=== PATIENT | male | born 1945 | race Caucasian/White ===

== ENCOUNTER → 2018-03-13 | Outpatient (CLI) | payer MEDICARE ==
--- NOTE | 2018-03-13 11:42 | XR ---
EXAMINATION TYPE: XR cervical spine limited DATE OF EXAM: 03/13/2018 COMPARISON: None HISTORY: Left side back pain TECHNIQUE: Three-view cervical spine FINDINGS: Minimal calcification may be within the carotid bifurcations. Facet degenerative changes ar e present. There is loss of disc height degenerative disc changes present C3-4 C5-6. Endplate spurrin g is present C6-7 and C5-6 and C3-4. Prevertebral space is normal. Posterior spinal lamellar line is intact. Odontoid appears unremarkable . IMPRESSION: 1. Degenerative disc changes and facet changes. No acute osseous abnormality radiographically appare nt.
--- NOTE | 2018-03-13 11:43 | XR ---
EXAMINATION TYPE: XR lumbar spine 2 or 3V DATE OF EXAM: 03/13/2018 COMPARISON: None HISTORY: Left side back pain TECHNIQUE: Three-view lumbar spine FINDINGS: There 5 lumbar-type vertebral bodies. The pedicles are intact. Disc space narrowing is pres ent L4-5 and posteriorly L3-4 and L5-S1. Disc space narrowing is present L2-L3. Spondylosis is presen t. Vertebral body heights are preserved. IMPRESSION: 1. Degenerative disc changes
== END | disposition home or self-care (01) ==
LOC: RADXRMAIN 10:11
PROVIDERS: ATTEND Chiropractor
DX: M47.816 Spondylosis without myelopathy or radiculopathy, lumbar region (principal); M47.812 Spondylosis without myelopathy or radiculopathy, cervical region; M99.03 Segmental and somatic dysfunction of lumbar region; M99.01 Segmental and somatic dysfunction of cervical region
CPT/HCPCS: 72040; 72100

== ENCOUNTER → 2018-06-29 | Outpatient (CLI) | payer MEDICARE ==
[2018-06-29 17:49] LABS: Albumin 4.9 g/dL (3.80-4.90); Albumin/Globulin Ratio 2.13 (1.20-2.10); Anion Gap 9.1 mmol/L (4.00-12.00); Carbon Dioxide 25.9 mmol/L (21.6-31.8); Globulin 2.3 g/dL (1.6-3.3); Potassium 4.3 mmol/L (3.5-5.5); Total Bilirubin 0.6 mg/dL (0.3-1.2); Total Protein 7.2 g/dL (6.2-8.2)
== END ==
LOC: LABWHC1 10:36
PROVIDERS: ATTEND Internal Medicine Interventional Cardiology
DX: E78.2 Mixed hyperlipidemia (principal)
CPT/HCPCS: 36415; 80053; 80061

== ENCOUNTER → 2018-07-02 | Outpatient (CLI) | payer MEDICARE ==
[2018-07-02 10:50] LABS: Basophils # (A) 0.1 k/uL (0-0.2); Basophils % (A) 1 %; Eosinophils # (A) 0.2 k/uL (0-0.7); Eosinophils % (A) 3 %; HCT 48.6 % (39.0-53.0); HGB 15.3 gm/dL (13.0-17.5); Lymphocytes # (A) 2.5 k/uL (1.0-4.8); Lymphocytes % (A) 34 %; MCH 29.6 pg (25.0-35.0); MCHC 31.4 g/dL (31.0-37.0); MCV 94.1 fL (80.0-100.0); Mean Platelet Volume 6.8; Monocytes # (A) 0.4 k/uL (0-1.0); Monocytes % (A) 6 %; Neutrophils % (A) 54 %; Platelet Count 220 k/uL (150-450); RBC 5.17 m/uL (4.30-5.90); RDW 13.5 % (11.5-15.5); WBC 7.4 k/uL (3.8-10.6)
[2018-07-02 16:11] LABS: Vitamin D 25 Hydroxy 37.7 ng/mL (30.0-100.0)
[2018-07-02 17:24] LABS: Anion Gap 10.8 mmol/L (4.00-12.00); Calcium 10.1 mg/dL (8.7-10.3); Carbon Dioxide 27.2 mmol/L (21.6-31.8); Magnesium 2.1 mg/dL (1.5-2.4); Phosphorus 3.1 mg/dL (2.4-5.1); Uric Acid 6.5 mg/dL (3.7-8.7)
[2018-07-02 17:44] LABS: Hemoglobin A1C 5.7 % (4.0-6.0)
== END | disposition home or self-care (01) ==
LOC: LABWHC1 09:54
PROVIDERS: ATTEND Family Medicine
DX: E11.22 Type 2 diabetes mellitus with diabetic chronic kidney disease (principal); N18.3 Chronic kidney disease, stage 3 (moderate); E55.9 Vitamin D deficiency, unspecified
CPT/HCPCS: 36415; 80048; 82043; 82306; 82570; 83036; 83735; 83970; 84100; 84550; 85025

== ENCOUNTER 2019-01-11 13:31 | Emergency (ER) | payer MEDICARE ==
[2019-01-11] MEDS ORDERED: SODIUM CHLORIDE 0.9% 500 ML 500 ML IV ONE (14:13)
--- NOTE | 2019-01-11 14:27 | ED ---
General Adult HPI - General Chief complaint: Altered Mental Status Stated complaint: confusion Time Seen by Provider: 01/11/19 13:35 Source: patient, family, RN notes reviewed Mode of arrival: wheelchair Limitations: altered mental status - History of Present Illness Initial comments: This is a 71-year-old female who presents emergency Department with a history of dementia patient what brings him in today because today he went to go lay down and walked into the closet shut the door behind him. states she will she went in and got him on the closet and he could not explain why he went in there. At that point time she decided to bring the emergency department states he is forgetful on occasion for the last couple of years but this was a little more altered than normal. Patient has had no fever chills. Patient has had no vomiting diarrhea. Patient denies any headache patient denies any lightheadedness patient denies any chest pain difficulty breathing or shortness of breath per patient denies any abdominal pain patient denies any nausea vomiting diarrhea. Patient denies any dysuria hematuria urinary frequency. - Related Data Home Medications Medication Instructions Recorded Confirmed Aspirin EC [Ecotrin Low Dose] 81 mg PO DAILY 01/11/19 01/11/19 Atorvastatin [Lipitor] 40 mg PO HS 01/11/19 01/11/19 Cholecalciferol (Vitamin D3) 2,000 unit PO DAILY 01/11/19 01/11/19 [Vitamin D3] Donepezil HCl [Aricept] 5 mg PO HS 01/11/19 01/11/19 FLUoxetine HCL [PROzac] 20 mg PO DAILY 01/11/19 01/11/19 Fenofibrate Nanocrystallized 145 mg PO DAILY 01/11/19 01/11/19 [Tricor] Fluticasone Nasal [place] [Flonase 1 - 2 spr EA NOSTRIL DAILY 01/11/19 01/11/19 Nasal [place]] Levothyroxine Sodium 100 mcg PO DAILY 01/11/19 01/11/19 Multivitamins, Thera [Multivitamin 1 tab PO DAILY 01/11/19 01/11/19 (formulary)] glipiZIDE [Glucotrol] 2.5 mg PO DAILY 01/11/19 01/11/19 lamoTRIgine [LaMICtal] 100 mg PO DAILY 08/12/19 08/12/19 Allergies Allergy/AdvReac Type Severity Reaction Status Date / Time Penicillins Allergy Rash/Hives Verified 01/11/19 14:44 sulfamethoxazole Allergy Rash/Hives Verified 01/11/19 14:44 [From Bactrim] trimethoprim [From Bactrim] Allergy Rash/Hives Verified 01/11/19 14:44 Review of Systems ROS Statement: Those systems with pertinent positive or pertinent negative responses have been documented in the HPI. ROS Other: All systems not noted in ROS Statement are negative. Past Medical History Past Medical History: No Reported History, Diabetes Mellitus History of Any Multi-Drug Resistant Organisms: None Reported Additional Past Surgical History / Comment(s): pacemaker Past Psychological History: No Psychological Hx Reported Smoking Status: Never smoker Past Alcohol Use History: None Reported Past Drug Use History: None Reported General Exam - General Exam Comments Initial Comments: GENERAL: Patient is well-developed and well-nourished. Patient is nontoxic and well-hy drated and is in no acute distress. ENT: Neck is soft and supple. No significant lymphadenopathy is noted. Oropharynx is clear. Moist mucous membranes. Neck has full range of motion without elici ting any pain. EYES: The sclera were anicteric and conjunctiva were pink and moist. Extraocular movements were intact and pupils were equal round and reactive to light. Eyelids were unremarkable. PULMONARY: Unlabored respirations. Good breath sounds bilaterally. No audible rales rhonchi or wheezing was noted. CARDIOVASCULAR: There is a regular rate and rhythm without any murmurs gallops or rubs. ABDOMEN: Soft and nontender with normal bowel sounds. SKIN: Skin is clear with no lesions or rashes and otherwise unremarkable. NEUROLOGIC: Patient is alert and oriented x3. Cranial nerves II through XII are grossly intact. Motor and sensory are also intact. Normal speech, volume and content. Symmetrical smile. MUSCULOSKELETAL: Normal extremities with adequate strength and full range of motion. No lower extremity swelling or edema. No calf tenderness. LYMPHATICS: No significant lymphadenopathy is noted PSYCHIATRIC: Normal psychiatric evaluation. Limitations: altered mental status Course Vital Signs 01/11/19 01/11/19 13:33 14:00 Temperature 98.5 F Pulse Rate 74 83 Respiratory 18 16 Rate Blood Pressure 124/81 137/76 O2 Sat by Pulse 98 96 Oximetry Medical Decision Making - Medical Decision Making CT shows no acute abnormality. Chest x-ray showed no acute normalities. Patient had no altered mental status while in the emergency department is comfortable taking him home. - Lab Data Result diagrams: 01/11/19 13:58 01/11/19 13:58 Lab Results 01/11/19 01/11/19 01/11/19 Range/Units 13:58 13:58 13:58 WBC 8.6 (3.8-10.6) k/uL RBC 4.56 (4.30-5.90) m/uL Hgb 14.3 (13.0-17.5) gm/dL Hct 43.1 (39.0-53.0) % MCV 94.3 (80.0-100.0) fL MCH 31.4 (25.0-35.0) pg MCHC 33.3 (31.0-37.0) g/dL RDW 15.2 (11.5-15.5) % Plt Count 196 (150-450) k/uL Neutrophils % 64 % Lymphocytes % 28 % Monocytes % 5 % Eosinophils % 2 % Basophils % 0 % Neutrophils # 5.5 (1.3-7.7) k/uL Lymphocytes # 2.4 (1.0-4.8) k/uL Monocytes # 0.4 (0-1.0) k/uL Eosinophils # 0.2 (0-0.7) k/uL Basophils # 0.0 (0-0.2) k/uL PT (9.0-12.0) sec INR (<1.2) APTT (22.0-30.0) sec Sodium 142 (137-145) mmol/L Potassium 4.1 (3.5-5.1) mmol/L Chloride 106 (98-107) mmol/L Carbon Dioxide 26 (22-30) mmol/L Anion Gap 10 mmol/L BUN 18 (9-20) mg/dL Creatinine 1.14 (0.66-1.25) mg/dL Est GFR (CKD-EPI)AfAm 73 (>60 ml/min/1.73 sqM) Est GFR (CKD-EPI)NonAf 63 (>60 ml/min/1.73 sqM) Glucose 134 H (74-99) mg/dL Calcium 9.7 (8.4-10.2) mg/dL Total Bilirubin 0.8 (0.2-1.3) mg/dL AST 24 (17-59) U/L ALT 38 (21-72) U/L Alkaline Phosphatase 102 (38-126) U/L Troponin I (0.000-0.034) ng/mL Total Protein 7.5 (6.3-8.2) g/dL Albumin 4.4 (3.5-5.0) g/dL Urine Color Yellow Urine Appearance Clear (Clear) Urine pH 8.0 (5.0-8.0) Ur Specific [place] 1.028 (1.001-1.035) Urine Protein Trace H (Negative) Urine Glucose (UA) Negative (Negative) Urine Ketones Trace H (Negative) Urine Blood Negative (Negative) Urine Nitrite Negative (Negative) Urine Bilirubin Negative (Negative) Urine Urobilinogen 2.0 (<2.0) mg/dL Ur Leukocyte Esterase Negative (Negative) Urine Opiates Screen Detected H (NotDetected) Ur Oxycodone Screen Not Detected (NotDetected) Urine Methadone Screen Not Detected (NotDetected) Ur Propoxyphene Screen Not Detected (NotDetected) Ur Barbiturates Screen Not Detected (NotDetected) U Tricyclic Antidepress Not Detected (NotDetected) Ur Phencyclidine Scrn Not Detected (NotDetected) Ur Amphetamines Screen Not Detected (NotDetected) U Methamphetamines Scrn Not Detected (NotDetected) U Benzodiazepines Scrn Detected H (NotDetected) Urine Cocaine Screen Not Detected (NotDetected) U Marijuana (THC) Screen Not Detected (NotDetected) 01/11/19 01/11/19 Range/Units 13:58 13:58 WBC (3.8-10.6) k/uL RBC (4.30-5.90) m/uL Hgb (13.0-17.5) gm/dL Hct (39.0-53.0) % MCV (80.0-100.0) fL MCH (25.0-35.0) pg MCHC (31.0-37.0) g/dL RDW (11.5-15.5) % Plt Count (150-450) k/uL Neutrophils % % Lymphocytes % % Monocytes % % Eosinophils % % Basophils % % Neutrophils # (1.3-7.7) k/uL Lymphocytes # (1.0-4.8) k/uL Monocytes # (0-1.0) k/uL Eosinophils # (0-0.7) k/uL Basophils # (0-0.2) k/uL PT 10.1 (9.0-12.0) sec INR 0.9 (<1.2) APTT 25.1 (22.0-30.0) sec Sodium (137-145) mmol/L Potassium (3.5-5.1) mmol/L Chloride (98-107) mmol/L Carbon Dioxide (22-30) mmol/L Anion Gap mmol/L BUN (9-20) mg/dL Creatinine (0.66-1.25) mg/dL Est GFR (CKD-EPI)AfAm (>60 ml/min/1.73 sqM) Est GFR (CKD-EPI)NonAf (>60 ml/min/1.73 sqM) Glucose (74-99) mg/dL Calcium (8.4-10.2) mg/dL Total Bilirubin (0.2-1.3) mg/dL AST (17-59) U/L ALT (21-72) U/L Alkaline Phosphatase (38-126) U/L Troponin I <0.012 (0.000-0.034) ng/mL Total Protein (6.3-8.2) g/dL Albumin (3.5-5.0) g/dL Urine Color Urine Appearance (Clear) Urine pH (5.0-8.0) Ur Specific [place] (1.001-1.035) Urine Protein (Negative) Urine Glucose (UA) (Negative) Urine Ketones (Negative) Urine Blood (Negative) Urine Nitrite (Negative) Urine Bilirubin (Negative) Urine Urobilinogen (<2.0) mg/dL Ur Leukocyte Esterase (Negative) Urine Opiates Screen (NotDetected) Ur Oxycodone Screen (NotDetected) Urine Methadone Screen (NotDetected) Ur Propoxyphene Screen (NotDetected) Ur Barbiturates Screen (NotDetected) U Tricyclic Antidepress (NotDetected) Ur Phencyclidine Scrn (NotDetected) Ur Amphetamines Screen (NotDetected) U Methamphetamines Scrn (NotDetected) U Benzodiazepines Scrn (NotDetected) Urine Cocaine Screen (NotDetected) U Marijuana (THC) Screen (NotDetected) Disposition Clinical Impression: Advancing dementia Disposition: HOME SELF-CARE Condition: Good Instructions (If sedation given, give patient instructions): Dementia (ED) Is patient prescribed a controlled substance at d/c from ED?: No Referrals: Helena Wisdom MD [Primary Care Provider] - 1-2 days Time of Disposition: 16:36
[2019-01-11 14:34] LABS: Appearance,Urine Clear (Clear); Basophils % (A) 0 %; Bilirubin,Urine Negative (Negative); Blood,Urine Negative (Negative); Color,Urine Yellow; Eosinophils # (A) 0.2 k/uL (0-0.7); Eosinophils % (A) 2 %; Glucose,Urine (UA) Negative (Negative); HCT 43.1 % (39.0-53.0); HGB 14.3 gm/dL (13.0-17.5); Ketones,Urine Trace (Negative); Leukocyte Esterase,Urine Negative (Negative); Lymphocytes # (A) 2.4 k/uL (1.0-4.8); Lymphocytes % (A) 28 %; MCH 31.4 pg (25.0-35.0); MCHC 33.3 g/dL (31.0-37.0); MCV 94.3 fL (80.0-100.0); Mean Platelet Volume 7.3; Monocytes # (A) 0.4 k/uL (0-1.0); Monocytes % (A) 5 %; Neutrophils # (A) 5.5 k/uL (1.3-7.7); Neutrophils % (A) 64 %; Nitrite,Urine Negative (Negative); Platelet Count 196 k/uL (150-450); Protein,Urine Trace (Negative); RBC 4.56 m/uL (4.30-5.90); RDW 15.2 % (11.5-15.5); Specific Gravity,Urine 1.028 (1.001-1.035); WBC 8.6 k/uL (3.8-10.6)
[2019-01-11 14:41] LABS: Albumin 4.4 g/dL (3.5-5.0); Calcium 9.7 mg/dL (8.4-10.2); Potassium 4.1 mmol/L (3.5-5.1); Total Bilirubin 0.8 mg/dL (0.2-1.3); Total Protein 7.5 g/dL (6.3-8.2)
[2019-01-11 14:42] LABS: INR 0.9 (<1.2); Partial Thromboplastin Time 25.1 sec (22.0-30.0); Prothrombin Time 10.1 sec (9.0-12.0)
[2019-01-11 14:44] LABS: Amphetamine Screen,Urine Not Detected (NotDetected); Barbiturate Screen,Urine Not Detected (NotDetected); Benzodiazepines Screen,Urine Detected (NotDetected); Cocaine Screen,Urine Not Detected (NotDetected); Methadone Screen, Urine Not Detected (NotDetected); Opiate Screen,Urine Detected (NotDetected); Oxycodone Screen, Urine Not Detected (NotDetected); Phencyclidine Screen,Urine Not Detected (NotDetected); Tricyclic Antidepressant,Urine Not Detected (NotDetected); Urn Cannabinoid Scrn Not Detected (NotDetected)
--- NOTE | 2019-01-11 14:59 | CT ---
EXAMINATION TYPE: CT brain wo con DATE OF EXAM: 01/11/2019 COMPARISON: None HISTORY: Confusion CT DLP: 1086.4 mGycm Automated exposure control for dose reduction was used. FINDINGS: No acute intracranial hemorrhage. Extra-axial spaces are clear. Basal cisterns are preserved. Scatter ed areas of low attenuation in periventricular and subcortical white matter. Diffuse generalized atro phy. Mild prominence of the ventricles likely on the basis of generalized atrophy. No mass effect or midline shift. Skull base is intact. Mastoid air cells and visualized paranasal sinuses are clear. Or bits are intact. IMPRESSION: NO ACUTE INTRACRANIAL HEMORRHAGE. MODERATE CHRONIC WHITE MATTER ISCHEMIA AND GENERALIZED ATROPHY. IF FOCAL NEUROLOGIC SYMPTOMS ARE PRES ENT, CONSIDER MRI OF THE BRAIN WITHOUT CONTRAST.
--- NOTE | 2019-01-11 15:05 | XR ---
EXAMINATION TYPE: XR chest 2V DATE OF EXAM: 01/11/2019 COMPARISON: NONE HISTORY: Confusion TECHNIQUE: Frontal and lateral views of the chest are obtained. FINDINGS: Left-sided cardiac pacemaker with atrioventricular leads overlying the cardiac silhouette. Left basilar scattered opacities. Cardiac silhouette and pulmonary vasculature are within normal li mits. No pleural effusion or pneumothorax. Osseous structures are grossly intact. Degenerative change s of the bilateral shoulders. IMPRESSION: A few scattered opacities at the left lung base may be related to atelectasis or early p neumonia.
[2019-01-11 16:40] VITALS: BP 127/73; PULSE 70; RESP 18; TEMP 97.9
== END 2019-01-11 17:00 | disposition home or self-care (01) ==
LOC: EC 13:31
DX: F03.90 Unspecified dementia, unspecified severity, without behavioral disturbance, psychotic disturbance, mood disturbance, and anxiety (principal); Z79.82 Long term (current) use of aspirin; Z79.899 Other long term (current) drug therapy; Z79.84 Long term (current) use of oral hypoglycemic drugs; Z79.51 Long term (current) use of inhaled steroids; Z79.890 Hormone replacement therapy; Z88.0 Allergy status to penicillin; Z88.1 Allergy status to other antibiotic agents; Z88.2 Allergy status to sulfonamides; Z95.0 Presence of cardiac pacemaker
CPT/HCPCS: 36415; 70450; 71046; 80053; 80306; 81003; 84484; 85025; 85610; 85730; 96360; 96361; 99285

== ENCOUNTER → 2019-03-04 | Outpatient (CLI) | payer MEDICARE ==
[2019-03-05 02:11] LABS: African American GFR (CKD) 67.7 (60.0-200.0); Albumin 4.7 g/dL (3.80-4.90); Albumin/Globulin Ratio 2.24 (1.60-3.17); Anion Gap 15.7 mmol/L (4.00-12.00); BUN/Creat Ratio 10.83 Ratio (12.00-20.00); Calcium 9.4 mg/dL (8.7-10.3); Carbon Dioxide 22.3 mmol/L (21.6-31.8); Chol/HDL Ratio 4.44; Globulin 2.1 g/dL (1.6-3.3); Potassium 4.1 mmol/L (3.5-5.5); Total Bilirubin 0.5 mg/dL (0.2-1.2); Total Protein 6.8 g/dL (6.2-8.2)
== END | disposition home or self-care (01) ==
LOC: LABWHC1 11:45
PROVIDERS: ATTEND Internal Medicine Interventional Cardiology
DX: E78.2 Mixed hyperlipidemia (principal)
CPT/HCPCS: 36415; 80053; 80061

== ENCOUNTER → 2019-04-09 | Outpatient (CLI) | payer MEDICARE ==
[2019-04-09 16:17] LABS: African American GFR (CKD) 67.7 (60.0-200.0); Anion Gap 7.6 mmol/L (4.00-12.00); BUN/Creat Ratio 9.17 Ratio (12.00-20.00); Calcium 9.4 mg/dL (8.7-10.3); Carbon Dioxide 28.4 mmol/L (21.6-31.8); Potassium 4.6 mmol/L (3.5-5.5)
[2019-04-09 16:47] LABS: Hemoglobin A1C 6.7 % (4.0-6.0)
== END | disposition home or self-care (01) ==
LOC: LABWHC1 10:52
PROVIDERS: ATTEND Family Medicine
DX: E11.9 Type 2 diabetes mellitus without complications (principal)
CPT/HCPCS: 36415; 80048; 82043; 82570; 83036

== ENCOUNTER 2019-06-09 15:53 | Emergency (ER) | payer MEDICARE ==
[2019-06-09] MEDS ORDERED: SODIUM CHLORIDE 0.9% 1,000 ML IV STA (16:50)
[2019-06-09 17:03] LABS: Basophils # (A) 0.2 k/uL (0-0.2); Basophils % (A) 3 %; Eosinophils # (A) 0.1 k/uL (0-0.7); Eosinophils % (A) 2 %; HCT 40.8 % (39.0-53.0); HGB 13.8 gm/dL (13.0-17.5); Lymphocytes # (A) 2.5 k/uL (1.0-4.8); Lymphocytes % (A) 38 %; MCH 30.8 pg (25.0-35.0); MCHC 33.8 g/dL (31.0-37.0); MCV 91.1 fL (80.0-100.0); Mean Platelet Volume 7.5; Monocytes # (A) 0.4 k/uL (0-1.0); Monocytes % (A) 7 %; Neutrophils # (A) 3.2 k/uL (1.3-7.7); Neutrophils % (A) 48 %; Platelet Count 181 k/uL (150-450); RBC 4.48 m/uL (4.30-5.90); RDW 12.8 % (11.5-15.5); WBC 6.6 k/uL (3.8-10.6)
--- NOTE | 2019-06-09 17:09 | ED ---
Dizziness HPI - General Chief Complaint: Dizziness Stated Complaint: Syncope Time Seen by Provider: 06/09/19 16:19 Source: patient, family, RN notes reviewed, old records reviewed Mode of arrival: wheelchair Limitations: no limitations - History of Present Illness Initial Comments: This is a 74-year-old male date ER for evaluation patient has near syncopal event today. He did lose his balance and hit his head with no loss of consciousness. Patient does have a significant heart history with pacemaker placed, patient does not think he has defibrillator. Patient does not recall being shocked with no chest pain he was lightheaded and dizzy is events all occurred after going to the [employer]. Patient was with his went to the bathroom after going to the [employer] at at the sink washing his hands began to feel lightheaded and dizzy at 25 his head. Patient currently is asymptomatic today headache chest pain shortness breath abdominal pain no recent illness nausea vomiting or diarrhea eating and drinking appropriately MD Complaint: dizziness, near syncope -: minutes(s) Timing: sudden onset Description: lightheadedness, near-syncope History of Same: Yes History of Trauma: Yes (Mild head trauma) Severity: mild Improves With: nothing Worsens With: nothing Associated Symptoms: weakness - Related Data Home Medications Medication Instructions Recorded Confirmed Aspirin EC [Ecotrin Low Dose] 81 mg PO DAILY 01/11/19 01/11/19 Atorvastatin [Lipitor] 40 mg PO HS 01/11/19 01/11/19 Cholecalciferol (Vitamin D3) 2,000 unit PO DAILY 01/11/19 01/11/19 [Vitamin D3] Donepezil HCl [Aricept] 5 mg PO HS 01/11/19 01/11/19 FLUoxetine HCL [PROzac] 20 mg PO DAILY 01/11/19 01/11/19 Fenofibrate Nanocrystallized 145 mg PO DAILY 01/11/19 01/11/19 [Tricor] Fluticasone Nasal [place] [Flonase 1 - 2 spr EA NOSTRIL DAILY 01/11/19 01/11/19 Nasal [place]] Levothyroxine Sodium 100 mcg PO DAILY 01/11/19 01/11/19 Multivitamins, Thera [Multivitamin 1 tab PO DAILY 01/11/19 01/11/19 (formulary)] glipiZIDE [Glucotrol] 2.5 mg PO DAILY 01/11/19 01/11/19 lamoTRIgine [LaMICtal] 100 mg PO DAILY 01/11/19 01/11/19 Allergies Allergy/AdvReac Type Severity Reaction Status Date / Time Penicillins Allergy Rash/Hives Verified 06/09/19 16:02 sulfamethoxazole Allergy Rash/Hives Verified 06/09/19 16:02 [From Bactrim] trimethoprim [From Bactrim] Allergy Rash/Hives Verified 06/09/19 16:02 Review of Systems ROS Statement: Those systems with pertinent positive or pertinent negative responses have been documented in the HPI. ROS Other: All systems not noted in ROS Statement are negative. Past Medical History Past Medical History: Diabetes Mellitus History of Any Multi-Drug Resistant Organisms: None Reported Additional Past Surgical History / Comment(s): pacemaker Past Psychological History: No Psychological Hx Reported Smoking Status: Never smoker Past Alcohol Use History: None Reported Past Drug Use History: None Reported General Exam Limitations: no limitations General appearance: alert, in no apparent distress Head exam: Present: atraumatic, normocephalic, normal inspection Eye exam: Present: normal appearance, PERRL, EOMI. Absent: scleral icterus, conjunctival injection, periorbital swelling ENT exam: Present: normal exam, mucous membranes moist Neck exam: Present: normal inspection. Absent: tenderness, meningismus, lymphadenopathy Respiratory exam: Present: normal lung sounds bilaterally. Absent: respiratory distress, wheezes, rales, rhonchi, stridor Cardiovascular Exam: Present: regular rate, normal rhythm, normal heart sounds. Absent: systolic murmur, diastolic murmur, rubs, gallop, clicks GI/Abdominal exam: Present: soft, normal bowel sounds. Absent: distended, tenderness, guarding, rebound, rigid Extremities exam: Present: normal inspection, full ROM, normal capillary refill. Absent: tenderness, pedal edema, joint swelling, calf tenderness Back exam: Present: normal inspection Neurological exam: Present: alert, oriented X3, CN II-XII intact Psychiatric exam: Present: normal affect, normal mood Skin exam: Present: warm, dry, intact, normal color. Absent: rash Course Vital Signs 06/09/19 06/09/19 06/09/19 15:57 18:22 19:38 Temperature 98.0 F 98.2 F Pulse Rate 77 73 70 Respiratory 18 17 18 Rate Blood Pressure 135/70 122/86 124/84 O2 Sat by Pulse 98 97 100 Oximetry - Reevaluation(s) Reevaluation #1: 06/09/19 17:40 Medical records reviewed Reevaluation #2: 06/09/19 17:40 Pacemaker is interrogated here in the ER no acute findings No significant recurrent events here in the ER patient feels at baseline EKG Findings - EKG Comments: EKG Findings:: EKG shows sinus rhythm of 70 [place] 170 QRS is 70 QTc of 406 Medical Decision Making - Medical Decision Making 74 male to the ER for evaluation patient is a regards to syncopal or near syncopal event no head injury noted. Patient is interrogated without significant findings. Patient feels fine at this time no headache chest pain shortness of breath and her abdominal pain. Patient will be discharged home - Lab Data Result diagrams: 06/09/19 16:13 06/09/19 16:13 Lab Results 06/09/19 06/09/19 06/09/19 Range/Units 16:13 16:13 16:13 WBC 6.6 (3.8-10.6) k/uL RBC 4.48 (4.30-5.90) m/uL Hgb 13.8 (13.0-17.5) gm/dL Hct 40.8 (39.0-53.0) % MCV 91.1 (80.0-100.0) fL MCH 30.8 (25.0-35.0) pg MCHC 33.8 (31.0-37.0) g/dL RDW 12.8 (11.5-15.5) % Plt Count 181 (150-450) k/uL Neutrophils % 48 % Lymphocytes % 38 % Monocytes % 7 % Eosinophils % 2 % Basophils % 3 % Neutrophils # 3.2 (1.3-7.7) k/uL Lymphocytes # 2.5 (1.0-4.8) k/uL Monocytes # 0.4 (0-1.0) k/uL Eosinophils # 0.1 (0-0.7) k/uL Basophils # 0.2 (0-0.2) k/uL PT (9.0-12.0) sec INR (<1.2) APTT (22.0-30.0) sec D-Dimer (<0.60) mg/L FEU Sodium 136 L (137-145) mmol/L Potassium 4.0 (3.5-5.1) mmol/L Chloride 104 (98-107) mmol/L Carbon Dioxide 24 (22-30) mmol/L Anion Gap 8 mmol/L BUN 17 (9-20) mg/dL Creatinine 1.05 (0.66-1.25) mg/dL Est GFR (CKD-EPI)AfAm 80 (>60 ml/min/1.73 sqM) Est GFR (CKD-EPI)NonAf 69 (>60 ml/min/1.73 sqM) Glucose 201 H (74-99) mg/dL Plasma Lactic Acid Fernando (0.7-2.0) mmol/L Calcium 9.0 (8.4-10.2) mg/dL Phosphorus 3.4 (2.5-4.5) mg/dL Magnesium 1.8 (1.6-2.3) mg/dL Total Bilirubin 0.4 (0.2-1.3) mg/dL AST 27 (17-59) U/L ALT 25 (4-49) U/L Alkaline Phosphatase 112 (38-126) U/L Creatine Kinase 51 L (55-170) U/L CK-MB (CK-2) 0.5 (0.0-2.4) ng/mL Troponin I <0.012 (0.000-0.034) ng/mL NT-Pro-B Natriuret Pep pg/mL Total Protein 6.9 (6.3-8.2) g/dL Albumin 4.0 (3.5-5.0) g/dL TSH 3.990 (0.465-4.680) mIU/L 06/09/19 06/09/19 06/09/19 Range/Units 16:13 16:13 16:13 WBC (3.8-10.6) k/uL RBC (4.30-5.90) m/uL Hgb (13.0-17.5) gm/dL Hct (39.0-53.0) % MCV (80.0-100.0) fL MCH (25.0-35.0) pg MCHC (31.0-37.0) g/dL RDW (11.5-15.5) % Plt Count (150-450) k/uL Neutrophils % % Lymphocytes % % Monocytes % % Eosinophils % % Basophils % % Neutrophils # (1.3-7.7) k/uL Lymphocytes # (1.0-4.8) k/uL Monocytes # (0-1.0) k/uL Eosinophils # (0-0.7) k/uL Basophils # (0-0.2) k/uL PT 9.9 (9.0-12.0) sec INR 0.9 (<1.2) APTT 26.4 (22.0-30.0) sec D-Dimer 0.23 (<0.60) mg/L FEU Sodium (137-145) mmol/L Potassium (3.5-5.1) mmol/L Chloride (98-107) mmol/L Carbon Dioxide (22-30) mmol/L Anion Gap mmol/L BUN (9-20) mg/dL Creatinine (0.66-1.25) mg/dL Est GFR (CKD-EPI)AfAm (>60 ml/min/1.73 sqM) Est GFR (CKD-EPI)NonAf (>60 ml/min/1.73 sqM) Glucose (74-99) mg/dL Plasma Lactic Acid Fernando 1.3 (0.7-2.0) mmol/L Calcium (8.4-10.2) mg/dL Phosphorus (2.5-4.5) mg/dL Magnesium (1.6-2.3) mg/dL Total Bilirubin (0.2-1.3) mg/dL AST (17-59) U/L ALT (4-49) U/L Alkaline Phosphatase (38-126) U/L Creatine Kinase (55-170) U/L CK-MB (CK-2) (0.0-2.4) ng/mL Troponin I (0.000-0.034) ng/mL NT-Pro-B Natriuret Pep 36 pg/mL Total Protein (6.3-8.2) g/dL Albumin (3.5-5.0) g/dL TSH (0.465-4.680) mIU/L - Radiology Data Radiology results: report reviewed (CT brain C-spine negative for acute disease), image reviewed Disposition Clinical Impression: Near syncope Disposition: HOME SELF-CARE Condition: Good Instructions (If sedation given, give patient instructions): Near Syncope (ED) Is patient prescribed a controlled substance at d/c from ED?: No Referrals: David Lowe [Primary Care Provider] - 1-2 days
[2019-06-09 17:13] LABS: Magnesium 1.8 mg/dL (1.6-2.3); Phosphorus 3.4 mg/dL (2.5-4.5); Total Bilirubin 0.4 mg/dL (0.2-1.3); Total Protein 6.9 g/dL (6.3-8.2)
[2019-06-09 17:27] LABS: D-Dimer 0.23 mg/L FEU (<0.60); INR 0.9 (<1.2); Partial Thromboplastin Time 26.4 sec (22.0-30.0); Prothrombin Time 9.9 sec (9.0-12.0)
[2019-06-09 17:38] LABS: Creatine Kinase MB 0.5 ng/mL (0.0-2.4); Troponin I <0.012 ng/mL (0.000-0.034)
--- NOTE | 2019-06-09 17:49 | CT ---
EXAMINATION TYPE: CT brain carina castro DATE OF EXAM: 06/09/2019 COMPARISON: CT brain 01/11/2019 HISTORY: Weakness. Frontal head injury. CT DLP: 1203.7 mGycm Automated exposure control for dose reduction was used. There is moderate diffuse cerebral atrophy. There is hypodensity in the white matter in both cerebral hemispheres and more noticeable around the frontal horns of the lateral ventricles. There is no mass effect nor midline shift. There is no sign of intracranial hemorrhage. Calvarium is intact. There is some straightening of the cervical vertebra. There is disc space mild narrowing at C3-4 C4-5 C5-6 with spurring of the endplates. There is mild hypertrophic facet arthropathy. The skull base is intact. IMPRESSION: Mild spondylotic changes in the mid cervical spine. No fracture. Cerebral atrophy and extensive white matter changes probably due to chronic small vessel ischemia. No acute intracranial abnormality. No change compared to last exam.
[2019-06-09 19:41] VITALS: BP 124/84; PULSE 70; RESP 18; TEMP 98.2
== END 2019-06-09 19:38 | disposition home or self-care (01) ==
LOC: EC 15:53
DX: R55 Syncope and collapse (principal); R53.1 Weakness; S09.90XA Unspecified injury of head, initial encounter; E11.9 Type 2 diabetes mellitus without complications; Z88.0 Allergy status to penicillin; Z88.2 Allergy status to sulfonamides; Z79.51 Long term (current) use of inhaled steroids; Z79.82 Long term (current) use of aspirin; Z79.84 Long term (current) use of oral hypoglycemic drugs; Z79.890 Hormone replacement therapy; Z79.899 Other long term (current) drug therapy; Z95.0 Presence of cardiac pacemaker; W22.8XXA Striking against or struck by other objects, initial encounter; Y93.89 Activity, other specified; Y92.002 Bathroom of unspecified non-institutional (private) residence as the place of occurrence of the external cause
CPT/HCPCS: 36415; 70450; 72125; 80053; 82550; 82553; 83605; 83735; 83880; 84100; 84443; 84484; 85025; 85379; 85610; 85730; 93005; 96360; 96361; 99285

== ENCOUNTER → 2019-07-09 | Outpatient (CLI) | payer MEDICARE ==
[2019-07-09 18:02] LABS: Chol/HDL Ratio 8.19
== END | disposition home or self-care (01) ==
LOC: LABWHC1 08:13
PROVIDERS: ATTEND Nurse Practitioner Adult Health
DX: E78.2 Mixed hyperlipidemia (principal)
CPT/HCPCS: 36415; 80061; 83721

== ENCOUNTER 2019-08-10 15:28 | Emergency (ER) | payer MEDICARE ==
[2019-08-10] MEDS ORDERED: KETOROLAC 30 MG/ML 1 ML VIAL IVP STA (16:21)
[2019-08-10] MEDS ORDERED: SODIUM CHLORIDE 0.9% 500 ML 500 ML IV STA (16:21)
[2019-08-10 16:53] LABS: Glucose,Whole Blood 156 mg/dL (75-99)
--- NOTE | 2019-08-10 16:55 | ED ---
Headache HPI - General Chief Complaint: Headache Stated Complaint: nause/headache Time Seen by Provider: 08/10/19 16:02 Mode of arrival: wheelchair Limitations: no limitations - History of Present Illness Initial Comments: Patient is a 74-year-old male, with history of dementia, seizures, diabetic, presenting to the emergency Department with complaints of lightheadedness and a headache x 4 days. There have been no falls or trauma. Patient states he noticed a small headache starting 4 days ago as well as lightheadedness that happens when he is up and walking around. He denies being nauseous or any vomiting prior to today. He states he had an episode of mild nausea in the ER waiting room today. He is no longer nauseous. He states his headache earlier today was 8/10 currently is about a 6/10. He states he does not normally get headaches. Patient states that if he takes this time getting up, his lightheadedness is less severe. He denies having chest pain, shortness of breath, abdominal pain. He denies urinary complaints. He denies any changes in his vision. He denies any recent changes of his medications. He states he has not eaten all day today. There are no other complaints at this time. Upon arrival to the ER, his vitals are stable. - Related Data Home Medications Medication Instructions Recorded Confirmed Aspirin EC [Ecotrin Low Dose] 81 mg PO DAILY 01/11/19 01/11/19 Atorvastatin [Lipitor] 40 mg PO HS 01/11/19 01/11/19 Cholecalciferol (Vitamin D3) 2,000 unit PO DAILY 01/11/19 01/11/19 [Vitamin D3] Donepezil HCl [Aricept] 5 mg PO HS 01/11/19 01/11/19 FLUoxetine HCL [PROzac] 20 mg PO DAILY 01/11/19 01/11/19 Fenofibrate Nanocrystallized 145 mg PO DAILY 01/11/19 01/11/19 [Tricor] Fluticasone Nasal Hodge [Flonase 1 - 2 spr EA NOSTRIL DAILY 01/11/19 01/11/19 Nasal Hodge] Levothyroxine Sodium 100 mcg PO DAILY 01/11/19 01/11/19 Multivitamins, Thera [Multivitamin 1 tab PO DAILY 01/11/19 01/11/19 (formulary)] glipiZIDE [Glucotrol] 2.5 mg PO DAILY 01/11/19 01/11/19 lamoTRIgine [LaMICtal] 100 mg PO DAILY 01/11/19 01/11/19 Allergies Allergy/AdvReac Type Severity Reaction Status Date / Time Penicillins Allergy Rash/Hives Verified 08/10/19 15:55 sulfamethoxazole Allergy Rash/Hives Verified 08/10/19 15:55 [From Bactrim] trimethoprim [From Bactrim] Allergy Rash/Hives Verified 08/10/19 15:55 Review of Systems ROS Statement: Those systems with pertinent positive or pertinent negative responses have been documented in the HPI. ROS Other: All systems not noted in ROS Statement are negative. Past Medical History Past Medical History: Coronary Artery Disease (CAD), Diabetes Mellitus History of Any Multi-Drug Resistant Organisms: None Reported Past Surgical History: Pacemaker Additional Past Surgical History / Comment(s): pacemaker , carpal tunnel Past Psychological History: No Psychological Hx Reported Smoking Status: Never smoker Past Alcohol Use History: None Reported Past Drug Use History: None Reported General Exam - General Exam Comments Initial Comments: GENERAL: Well-appearing, well-nourished and in no acute distress. HEAD: Atraumatic, normocephalic. EYES: Pupils equal round and reactive to light, extraocular movements intact, sclera anicteric, conjunctiva are normal. ENT: TMs normal, nares patent, oropharynx clear without exudates. Moist mucous membranes. NECK: Normal range of motion, supple without lymphadenopathy or JVD. LUNGS: Breath sounds clear to auscultation bilaterally and equal. No wheezes rales or rhonchi. HEART: Regular rate and rhythm without murmurs, rubs or gallops. ABDOMEN: Soft, nontender, normoactive bowel sounds. No guarding, no rebound. No masses appreciated. : Deferred EXTREMITIES: Normal range of motion, no pitting or edema. No clubbing or cyanosis. Patient has 5 out of 5 strength in his upper and lower extremities. Sensation is equal in bilateral upper and lower extremities. NEUROLOGICAL: Cranial nerves II through XII grossly intact. Normal speech, normal gait. PSYCH: Normal mood, normal affect. SKIN: Warm, Dry, normal turgor, no rashes or lesions noted. Limitations: no limitations Course Vital Signs 03/10/20 03/10/20 15:51 18:15 Temperature 97.5 F L 97.8 F Pulse Rate 66 68 Respiratory 20 18 Rate Blood Pressure 125/64 136/74 O2 Sat by Pulse 100 97 Oximetry Medical Decision Making - Medical Decision Making Patient is a 74-year-old male presenting with a headache as well as lightheadedness for the past 4 days. Vitals are stable. Exam is unremarkable. Patient does have history of dementia and seizures. No medication change. No neuro deficits today. Lab work shows no acute findings today, troponin is normal, sugar is 150. EKG shows no acute changes. Urine shows signs of dehydration, no signs of infection. CT of the brain shows chronic changes, no acute findings. Patient was given fluids as well as small dose of Toradol. He reports improvement of symptoms. He is requesting to be discharged. I discussed these findings with the patient and his . His symptoms are most likely related to dehydration as well as possible orthopedic hypotension. Patient is stable for discharge at this time. Return parameters were discussed with the patient and his and they both verbalized understanding. They will follow up with PCP. Patient and are in agreement with this plan of care. Case discussed with Dr. Clarke. - Lab Data Result diagrams: 08/10/19 16:44 08/10/19 16:44 Lab Results 08/10/19 08/10/19 08/10/19 Range/Units 16:44 16:44 16:44 WBC 8.6 (3.8-10.6) k/uL RBC 4.97 (4.30-5.90) m/uL Hgb 15.4 (13.0-17.5) gm/dL Hct 44.8 (39.0-53.0) % MCV 90.2 (80.0-100.0) fL MCH 30.9 (25.0-35.0) pg MCHC 34.3 (31.0-37.0) g/dL RDW 13.0 (11.5-15.5) % Plt Count 228 (150-450) k/uL Neutrophils % 69 % Lymphocytes % 25 % Monocytes % 4 % Eosinophils % 1 % Basophils % 0 % Neutrophils # 5.9 (1.3-7.7) k/uL Lymphocytes # 2.2 (1.0-4.8) k/uL Monocytes # 0.3 (0-1.0) k/uL Eosinophils # 0.1 (0-0.7) k/uL Basophils # 0.0 (0-0.2) k/uL PT 9.9 (9.0-12.0) sec INR 1.0 (<1.2) APTT 23.1 (22.0-30.0) sec Sodium 138 (137-145) mmol/L Potassium 4.2 (3.5-5.1) mmol/L Chloride 101 (98-107) mmol/L Carbon Dioxide 26 (22-30) mmol/L Anion Gap 11 mmol/L BUN 17 (9-20) mg/dL Creatinine 1.20 (0.66-1.25) mg/dL Est GFR (CKD-EPI)AfAm 68 (>60 ml/min/1.73 sqM) Est GFR (CKD-EPI)NonAf 59 (>60 ml/min/1.73 sqM) Glucose 148 H (74-99) mg/dL POC Glucose (mg/dL) (75-99) mg/dL POC Glu Manager Support Services ID Calcium 10.2 (8.4-10.2) mg/dL Total Bilirubin 1.0 (0.2-1.3) mg/dL AST 29 (17-59) U/L ALT 30 (4-49) U/L Alkaline Phosphatase 107 (38-126) U/L Troponin I (0.000-0.034) ng/mL Total Protein 8.3 H (6.3-8.2) g/dL Albumin 5.1 H (3.5-5.0) g/dL Urine Color Urine Appearance (Clear) Urine pH (5.0-8.0) Ur Specific [place] (1.001-1.035) Urine Protein (Negative) Urine Glucose (UA) (Negative) Urine Ketones (Negative) Urine Blood (Negative) Urine Nitrite (Negative) Urine Bilirubin (Negative) Urine Urobilinogen (<2.0) mg/dL Ur Leukocyte Esterase (Negative) Urine RBC (0-5) /hpf Urine WBC (0-5) /hpf Hyaline Casts (0-2) /lpf Urine Mucus (None) /hpf 08/10/19 08/10/19 08/10/19 Range/Units 16:44 16:47 17:05 WBC (3.8-10.6) k/uL RBC (4.30-5.90) m/uL Hgb (13.0-17.5) gm/dL Hct (39.0-53.0) % MCV (80.0-100.0) fL MCH (25.0-35.0) pg MCHC (31.0-37.0) g/dL RDW (11.5-15.5) % Plt Count (150-450) k/uL Neutrophils % % Lymphocytes % % Monocytes % % Eosinophils % % Basophils % % Neutrophils # (1.3-7.7) k/uL Lymphocytes # (1.0-4.8) k/uL Monocytes # (0-1.0) k/uL Eosinophils # (0-0.7) k/uL Basophils # (0-0.2) k/uL PT (9.0-12.0) sec INR (<1.2) APTT (22.0-30.0) sec Sodium (137-145) mmol/L Potassium (3.5-5.1) mmol/L Chloride (98-107) mmol/L Carbon Dioxide (22-30) mmol/L Anion Gap mmol/L BUN (9-20) mg/dL Creatinine (0.66-1.25) mg/dL Est GFR (CKD-EPI)AfAm (>60 ml/min/1.73 sqM) Est GFR (CKD-EPI)NonAf (>60 ml/min/1.73 sqM) Glucose (74-99) mg/dL POC Glucose (mg/dL) 156 H (75-99) mg/dL POC Glu Manager Support Services ID Josefa Ro Calcium (8.4-10.2) mg/dL Total Bilirubin (0.2-1.3) mg/dL AST (17-59) U/L ALT (4-49) U/L Alkaline Phosphatase (38-126) U/L Troponin I <0.012 (0.000-0.034) ng/mL Total Protein (6.3-8.2) g/dL Albumin (3.5-5.0) g/dL Urine Color Yellow Urine Appearance Clear (Clear) Urine pH 7.0 (5.0-8.0) Ur Specific [place] 1.034 (1.001-1.035) Urine Protein 1+ H (Negative) Urine Glucose (UA) Trace H (Negative) Urine Ketones 2+ H (Negative) Urine Blood Negative (Negative) Urine Nitrite Negative (Negative) Urine Bilirubin Negative (Negative) Urine Urobilinogen 2.0 (<2.0) mg/dL Ur Leukocyte Esterase Negative (Negative) Urine RBC 2 (0-5) /hpf Urine WBC 3 (0-5) /hpf Hyaline Casts 1 (0-2) /lpf Urine Mucus Moderate H (None) /hpf - EKG Data EKG Comments: Ventricular rate 67, PA interval 178, QTC 420. Normal sinus rhythm. Normal ECG. No acute ST segment changes. Disposition Clinical Impression: Headache, Lightheadedness, Dehydration Disposition: HOME SELF-CARE Condition: Stable Instructions (If sedation given, give patient instructions): Dehydration (ED) Additional Instructions: Please return to the Emergency Department if symptoms worsen or any other concerns. Follow-up with PCP in 1- 3 days as discussed. Increase water intake. Is patient prescribed a controlled substance at d/c from ED?: No Referrals: David Lowe [Primary Care Provider] - 1-2 days
[2019-08-10 17:06] LABS: Basophils % (A) 0 %; Eosinophils # (A) 0.1 k/uL (0-0.7); Eosinophils % (A) 1 %; HCT 44.8 % (39.0-53.0); HGB 15.4 gm/dL (13.0-17.5); Lymphocytes # (A) 2.2 k/uL (1.0-4.8); Lymphocytes % (A) 25 %; MCH 30.9 pg (25.0-35.0); MCHC 34.3 g/dL (31.0-37.0); MCV 90.2 fL (80.0-100.0); Mean Platelet Volume 7.2; Monocytes # (A) 0.3 k/uL (0-1.0); Monocytes % (A) 4 %; Neutrophils # (A) 5.9 k/uL (1.3-7.7); Neutrophils % (A) 69 %; Platelet Count 228 k/uL (150-450); RBC 4.97 m/uL (4.30-5.90); WBC 8.6 k/uL (3.8-10.6)
[2019-08-10 17:16] LABS: Albumin 5.1 g/dL (3.5-5.0); Calcium 10.2 mg/dL (8.4-10.2); Potassium 4.2 mmol/L (3.5-5.1); Total Protein 8.3 g/dL (6.3-8.2)
--- NOTE | 2019-08-10 17:24 | CT ---
EXAMINATION TYPE: CT brain wo con DATE OF EXAM: 08/10/2019 COMPARISON: 06/09/2019 HISTORY: Dizziness and headache. CT DLP: 1099.4 mGycm Automated exposure control for dose reduction was used. Multiple axial sections were obtained of the brain without contrast. There is diffuse cerebral cortical atrophy. There is moderate patchy hypodensity in the periventricul ar white matter. There is no mass effect nor midline shift. There is no sign of intracranial hemorrha ge. The calvarium is intact. IMPRESSION: Cerebral atrophy and extensive chronic small vessel ischemia. No acute intracranial abnormality. No c hange.
[2019-08-10 17:31] LABS: Partial Thromboplastin Time 23.1 sec (22.0-30.0); Prothrombin Time 9.9 sec (9.0-12.0)
[2019-08-10 17:36] LABS: Appearance,Urine Clear (Clear); Bilirubin,Urine Negative (Negative); Blood,Urine Negative (Negative); Color,Urine Yellow; Glucose,Urine (UA) Trace (Negative); Hyaline Casts,Urine 1 /lpf (0-2); Ketones,Urine 2+ (Negative); Leukocyte Esterase,Urine Negative (Negative); Mucus,Urine Moderate /hpf; Nitrite,Urine Negative (Negative); Protein,Urine 1+ (Negative); RBC,Urine 2 /hpf (0-5); Specific Gravity,Urine 1.034 (1.001-1.035); WBC,Urine 3 /hpf (0-5)
[2019-08-10 18:16] VITALS: BP 136/74; PULSE 68; RESP 18; TEMP 97.8
== END 2019-08-10 18:16 | disposition home or self-care (01) ==
LOC: EC 15:28
DX: E86.0 Dehydration (principal); R51 Headache; F03.90 Unspecified dementia, unspecified severity, without behavioral disturbance, psychotic disturbance, mood disturbance, and anxiety; I25.10 Atherosclerotic heart disease of native coronary artery without angina pectoris; R56.9 Unspecified convulsions; E11.9 Type 2 diabetes mellitus without complications; Z79.82 Long term (current) use of aspirin; Z79.84 Long term (current) use of oral hypoglycemic drugs; Z79.899 Other long term (current) drug therapy; Z88.0 Allergy status to penicillin; Z88.2 Allergy status to sulfonamides; Z88.1 Allergy status to other antibiotic agents; Z95.0 Presence of cardiac pacemaker
CPT/HCPCS: 36415; 93005; 80053; 84484; 85025; 85610; 85730; 81001; 70450; 96374; 96361; 99284; J1885

== ENCOUNTER → 2020-02-04 | Outpatient (CLI) | payer MEDICARE ==
[2020-02-04 23:56] LABS: T4, Free (Free Thyroxine) 1.4 ng/dL (0.80-1.80)
== END | disposition home or self-care (01) ==
LOC: LABWHC1 15:44
PROVIDERS: ATTEND Psychiatry & Neurology Neurology
DX: E03.9 Hypothyroidism, unspecified (principal); R41.3 Other amnesia; G40.909 Epilepsy, unspecified, not intractable, without status epilepticus
CPT/HCPCS: 36415; 82306; 82607; 84439; 84443; 85652; 86038

== ENCOUNTER → 2020-02-14 | Outpatient (CLI) | payer MEDICARE ==
--- NOTE | 2020-02-14 16:34 | CT ---
EXAMINATION TYPE: CT brain wo con DATE OF EXAM: 02/14/2020 COMPARISON: 08/10/2019 HISTORY: 1144.70 CT DLP: Cerebral infarction, unspecified mGycm Unenhanced CT of the brain was performed. The ventricles, basal cisterns and sulci overlying the cerebral convexities demonstrate moderate enla rgement. There is no evidence for intracranial hemorrhage or sulcal effacement. There is decreased attenuation about the periventricular white matter and deep white matter of both c erebral hemispheres, compatible with chronic small vessel ischemia. Differential diagnosis does inclu de demyelination. No mass effects are seen.No midline shift. Osseous calvarium is intact. If symptoms persist consider MRI. IMPRESSION: 1. Age related atrophic and chronic small vessel ischemic change without acute intracranial process s een at this time.
== END | disposition home or self-care (01) ==
LOC: RADCTMAIN 16:15
PROVIDERS: ATTEND Psychiatry & Neurology Neurology
DX: G31.1 Senile degeneration of brain, not elsewhere classified (principal); I67.82 Cerebral ischemia; I63.9 Cerebral infarction, unspecified
CPT/HCPCS: 70450

== ENCOUNTER → 2020-04-12 | Outpatient (CLI) | payer MEDICARE ==
[2020-04-12 08:40] LABS: HCT 46.1 % (39.0-53.0); HGB 15.1 gm/dL (13.0-17.5); MCH 30.3 pg (25.0-35.0); MCHC 32.7 g/dL (31.0-37.0); MCV 92.7 fL (80.0-100.0); Mean Platelet Volume 7.1; Platelet Count 211 k/uL (150-450); RBC 4.97 m/uL (4.30-5.90); RDW 13.5 % (11.5-15.5); WBC 8.2 k/uL (3.8-10.6)
[2020-04-12 08:54] LABS: Potassium 4.2 mmol/L (3.5-5.1)
== END | disposition home or self-care (01) ==
LOC: LABWHC1 07:50
PROVIDERS: ATTEND Internal Medicine Interventional Cardiology
DX: Z01.818 Encounter for other preprocedural examination (principal); R94.39 Abnormal result of other cardiovascular function study
CPT/HCPCS: 36415; 80051; 82565; 84520; 85027

== ENCOUNTER 2020-04-20 07:00 | Day surgery (SDC) | payer MEDICARE ==
[2020-04-18 11:00] VITALS: BMI 28.0
[~2020-04-20 07:00] MED LIST: ALPRAZolam 0.25 MG TAB PO PRN; ALPRAZolam 0.5 MG TAB PO PRN; ASPIRIN 325 MG TAB PO STA; NITROGLYCERIN SL TABS 0.4 MG TAB SUBLINGUAL PRN; SODIUM CHLORIDE 0.9% 1,000 ML in EMPTY BAG 1 BAG IV ONE
[2020-04-20] MEDS ORDERED: SODIUM CHLORIDE 0.9% 1,000 ML IV ONE (07:11)
[2020-04-20 07:29] LABS: Glucose,Whole Blood 122 mg/dL (75-99)
[2020-04-20] MEDS ORDERED: LIDOCAINE 1% INJ 10MG/ML (20 ML MDV) ONE (08:58)
[2020-04-20] MEDS ORDERED: fentaNYL (PF) 50 MCG/ML 2 ML AMP ONE (08:59)
[2020-04-20] MEDS ORDERED: VERAPAMIL 2.5 MG/ML 2 ML AMP ONE (08:59)
[2020-04-20] MEDS ORDERED: fentaNYL (PF) 50 MCG/ML 2 ML AMP IVP ONE (09:19)
[2020-04-20] MEDS ORDERED: LIDOCAINE 1% INJ 10MG/ML (20 ML MDV) SQ ONE (09:25)
[2020-04-20] MEDS ORDERED: VERAPAMIL SYRINGE (5 MG/10 ML) INTRAARTER ONE (09:27)
[2020-04-20] MEDS ORDERED: HEPARIN SODIUM 1,000 UN/ML (10ML VL) ONE (09:34)
[2020-04-20] MEDS ORDERED: NITROGLYCERIN 1000MCG/10ML SYRINGE INTRACORON ONE (09:36)
[2020-04-20] MEDS ORDERED: HEPARIN SODIUM 1,000 UN/ML (10ML VL) IV ONE (09:36)
[2020-04-20] MEDS ORDERED: IOPAMIDOL-370 125ML BTL INJ ONE (09:38)
[2020-04-20] MEDS ORDERED: RX INFO: IV CONTRAST WAS GIVEN 1 EACH MISC MISCELLANE PRN (09:51)
[2020-04-20] MEDS ORDERED: SODIUM CHLORIDE 0.9% 1,000 ML IV SCH (10:00)
[2020-04-20 10:01] VITALS: RESP 16
--- NOTE | 2020-04-20 12:08 | CC ---
CARDIAC CATHETERIZATION REPORT Mr. Bueno is a 75-year-old male with known history of permanent pacemaker implantation, history of diabetes, hyperlipidemia who recently underwent a myocardial perfusion imaging that revealed evidence of inferior wall ischemia. In view of that, recommendation regarding cardiac catheterization, the procedures, risks, and complication were discussed with the patient who is in full understanding and agreement. PROCEDURE: Patient was brought to labor contract analyst in a fasting state after receiving fentanyl and Benadryl and achieving moderate conscious sedated state. Using Xylocaine anesthesia such technique,. a 6-Latvian sheath was introduced in the right radial artery. Selective right and left coronary angiography performed using 5-Latvian 3.5 bend right and left Abbie catheter. multiple views of the coronary artery including hemiaxial views were obtained. Subsequently, the left Abbie was used to cross the aortic valve and left ventricular end-diastolic pressure was calculated. following that catheter and sheath were removed. Hemostasis was obtained with deployment of a TR band. There was no immediate complication. Patient is returned to his room in stable condition. Of note, the patient received 4500 units of intravenous heparin as well as intra- arterial verapamil. FLUOROSCOPY: There was calcification involving the LAD. LEFT MAIN: This is a short size vessel, bifurcating into left circumflex, left anterior descending artery. Left main coronary artery has no evidence of high-grade stenosis. LEFT ANTERIOR DESCENDING ARTERY: This is a large-sized vessel reaching toward the apex with a wraparound apex segment giving rise to 1 diagonal branch of moderate caliber. The left anterior descending artery in, has diffuse intimal disease in the proximal and mid segment with area of stenosis up to 20 30% without any critical stenosis. The caliber of the vessel is small. Next the left circumflex this is a nondominant vessel, large in caliber giving rise to 4 obtuse marginal branch the 3rd and the 4th 1 at the largest in caliber the left circumflex in the proximal segment has a 20% plaque. The rest of the vessel has no high-grade stenosis. RIGHT CORONARY ARTERY: This is a dominant vessel giving rise to a PDA distally. The right coronary artery has intimal disease in the proximal distal segment of 20% to 30% without any evidence of high-grade stenosis. LEFT VENTRICULOGRAM: Left ventriculogram was not performed. HEMODYNAMICS: There was no gradient across the aortic valve. The left ventricular end- diastolic pressure was 5-8 mmHg. CONCLUSION: 1. Mild triple-vessel coronary artery disease. 2. Right dominance. RECOMMENDATION: In view of finding anatomy, I recommend continue medical therapy with aggressive risk modifications being initiated. Those findings and recommendation were discussed with the patient and his family and they are in full understanding and agreement. Duration of sedation 8 minutes. GIO / JOSE LUIS: [id number] /
--- NOTE | 2020-04-20 12:08 | LTR ---
DATE OF SERVICE: 04/20/2020 RE: Linwood Bueno Dear Dr. Lowe; I had the pleasure to perform cardiac catheterization on Mr. Bueno at [facility] on April 20, 2020 and a full copy of the procedure note will be forwarded to you. In brief, he was found to have mild triple-vessel disease with no evidence of high- grade stenosis and based on those findings, I recommend continue medical therapy with aggressive risk modification being initiated and thank you again for allowing me to participate in this patient's care. Please feel free to call for any questions. Sincerely yours, MD KOLE De SouzaL / KAYLAN: [id number] /
[2020-04-20 18:07] VITALS: BP 136/70; PULSE 76
[2020-04-20] MEDS ORDERED: ATORVASTATIN 40 MG TAB PO SCH (21:00)
[2020-04-21] MEDS ORDERED: MULTIVITAMINS, THERA 1 EACH TAB PO SCH (09:00)
[2020-04-21] MEDS ORDERED: LEVOTHYROXINE 100 MCG TAB PO SCH (09:00)
[2020-04-21] MEDS ORDERED: NON FORMULARY DRUG (Cholecalciferol (Vitamin D3) [Vitamin D3] 2,000 UNIT Capsule) PO SCH (09:00)
[2020-04-21] MEDS ORDERED: DONEPEZIL 5 MG TAB PO SCH (09:00)
[2020-04-21] MEDS ORDERED: glipiZIDE 5 MG TAB PO SCH (09:00)
[2020-04-21] MEDS ORDERED: NON FORMULARY DRUG (Aspirin Ec 81 MG Tablet.Dr) PO SCH (09:00)
[2020-04-21] MEDS ORDERED: NON FORMULARY DRUG (Fenofibrate Nanocrystallized [Tricor] 145 MG Tablet) PO SCH (09:00)
== END 2020-04-20 15:00 | disposition home or self-care (01) ==
LOC: CATHCVL 07:00
PROVIDERS: ATTEND Internal Medicine Interventional Cardiology
DX: I25.10 Atherosclerotic heart disease of native coronary artery without angina pectoris (principal); E11.9 Type 2 diabetes mellitus without complications; E78.2 Mixed hyperlipidemia; E07.9 Disorder of thyroid, unspecified; Z95.0 Presence of cardiac pacemaker; Z79.84 Long term (current) use of oral hypoglycemic drugs; Z79.890 Hormone replacement therapy; Z79.82 Long term (current) use of aspirin; Z79.899 Other long term (current) drug therapy; Z88.0 Allergy status to penicillin; Z88.2 Allergy status to sulfonamides; Z88.8 Allergy status to other drugs, medicaments and biological substances; Z87.891 Personal history of nicotine dependence; Z82.49 Family history of ischemic heart disease and other diseases of the circulatory system
CPT/HCPCS: 93458; C1769; C1894; J2001; J3010; J1644; Q9967

== ENCOUNTER 2020-05-03 12:11 | Emergency (ER) | payer MEDICARE ==
[2020-05-03] MEDS ORDERED: ONDANSETRON 4 MG/2 ML VIAL IVP STA (12:58)
--- NOTE | 2020-05-03 13:05 | ED ---
General Adult HPI - General Chief complaint: Nausea/Vomiting/Diarrhea Stated complaint: Weakness,diarrhea Time Seen by Provider: 05/03/20 12:23 Source: patient, RN notes reviewed Mode of arrival: wheelchair Limitations: no limitations - History of Present Illness Initial comments: 75-year-old male with a past medical history of CAD, diabetes mellitus presents to the emergency room for a chief complaint of nausea vomiting diarrhea. Patient reports this has been ongoing for about 3 days. He reports he is able to keep down fluids. Patient also has slight dry cough and body aches. Patient denies fevers. He denies any abdominal pain whatsoever. Denies bloody or mucousy diarrhea. Patient did get together with his whole family less than a week ago for the Thanksgiving and is concerned he could have coronavirus. Patient has no other complaints at this time including shortness of breath, chest pain, abdominal pain, nausea or vomiting, headache, or visual changes. - Related Data Home Medications Medication Instructions Recorded Confirmed Aspirin EC [Ecotrin Low Dose] 81 mg PO DAILY 01/11/19 05/03/20 Atorvastatin [Lipitor] 40 mg PO HS 01/11/19 05/03/20 Cholecalciferol (Vitamin D3) 2,000 unit PO DAILY 01/11/19 05/03/20 [Vitamin D3] Levothyroxine Sodium 112 mcg PO DAILY 01/11/19 05/03/20 glipiZIDE [Glucotrol] 2.5 mg PO DAILY 01/11/19 05/03/20 Donepezil [Aricept] 10 mg PO DAILY 05/03/20 05/03/20 Multivit-Min/Folic/Vit K/Lycop 1 tab PO DAILY 05/03/20 05/03/20 [Men's Multivitamin Tablet] Vitamin E Acetate [Vitamin E] 200 unit PO DAILY 05/03/20 05/03/20 Allergies Allergy/AdvReac Type Severity Reaction Status Date / Time Penicillins Allergy Rash/Hives Verified 05/03/20 13:00 sulfamethoxazole Allergy Rash/Hives Verified 05/03/20 13:00 [From Bactrim] trimethoprim [From Bactrim] Allergy Rash/Hives Verified 05/03/20 13:00 rye bread AdvReac Unknown Uncoded 04/20/20 07:28 Review of Systems ROS Statement: Those systems with pertinent positive or pertinent negative responses have been documented in the HPI. ROS Other: All systems not noted in ROS Statement are negative. Past Medical History Past Medical History: Coronary Artery Disease (CAD), Diabetes Mellitus History of Any Multi-Drug Resistant Organisms: None Reported Past Surgical History: Pacemaker Additional Past Surgical History / Comment(s): pacemaker , carpal tunnel Past Psychological History: No Psychological Hx Reported Smoking Status: Never smoker Past Alcohol Use History: None Reported Past Drug Use History: None Reported General Exam Limitations: no limitations General appearance: alert, in no apparent distress Head exam: Present: atraumatic, normocephalic, normal inspection Eye exam: Present: normal appearance, PERRL, EOMI. Absent: scleral icterus, con junctival injection, periorbital swelling ENT exam: Present: normal exam, mucous membranes moist Neck exam: Present: normal inspection, full ROM. Absent: tenderness, meningismus, lymphadenopathy Respiratory exam: Present: normal lung sounds bilaterally. Absent: respiratory distress, wheezes, rales, rhonchi, stridor Cardiovascular Exam: Present: regular rate, normal rhythm, normal heart sounds. Absent: systolic murmur, diastolic murmur, rubs, gallop, clicks GI/Abdominal exam: Present: soft, normal bowel sounds. Absent: distended, tenderness, guarding, rebound, rigid Neurological exam: Present: alert Course Vital Signs 05/03/20 12:20 Temperature 98.2 F Pulse Rate 68 Respiratory 16 Rate Blood Pressure 130/81 O2 Sat by Pulse 100 Oximetry EKG Findings - EKG Comments: EKG Findings:: Normal sinus rhythm, ventricular rate 67, NM interval 198, QTC 429 Medical Decision Making - Medical Decision Making Vitals are stable. Patient is well-appearing. He has a nontender abdomen. CBC is unremarkable. CMP unremarkable. He does have some mild hyperglycemia. Coronavirus is negative. Chest x-ray was obtained given slight cough which shows no definite acute process. Patient likely has a viral gastroenteritis causing nausea vomiting diarrhea. Patient was discharged home with Zofran and is recommended to return to the emergency room for any worsening symptoms. - Lab Data Result diagrams: 05/03/20 13:21 05/03/20 13:21 Lab Results 05/03/20 12 12 Range/Units 13:21 13:21 13:21 WBC 10.1 (3.8-10.6) k/uL RBC 5.13 (4.30-5.90) m/uL Hgb 15.6 (13.0-17.5) gm/dL Hct 46.4 (39.0-53.0) % MCV 90.5 (80.0-100.0) fL MCH 30.4 (25.0-35.0) pg MCHC 33.6 (31.0-37.0) g/dL RDW 13.2 (11.5-15.5) % Plt Count 201 (150-450) k/uL MPV 7.0 Neutrophils % 80 % Lymphocytes % 14 % Monocytes % 4 % Eosinophils % 1 % Basophils % 0 % Neutrophils # 8.0 H (1.3-7.7) k/uL Lymphocytes # 1.5 (1.0-4.8) k/uL Monocytes # 0.4 (0-1.0) k/uL Eosinophils # 0.1 (0-0.7) k/uL Basophils # 0.0 (0-0.2) k/uL PT 9.9 (9.0-12.0) sec INR 0.9 (<1.2) APTT 23.3 (22.0-30.0) sec Sodium 137 (137-145) mmol/L Potassium 4.3 (3.5-5.1) mmol/L Chloride 101 (98-107) mmol/L Carbon Dioxide 29 (22-30) mmol/L Anion Gap 7 mmol/L BUN 15 (9-20) mg/dL Creatinine 1.18 (0.66-1.25) mg/dL Est GFR (CKD-EPI)AfAm 68 (>60 ml/min/1.73 sqM) Est GFR (CKD-EPI)NonAf 59 (>60 ml/min/1.73 sqM) Glucose 186 H (74-99) mg/dL Plasma Lactic Acid Fernando (0.7-2.0) mmol/L Calcium 9.6 (8.4-10.2) mg/dL Magnesium 1.9 (1.6-2.3) mg/dL Total Bilirubin 0.7 (0.2-1.3) mg/dL AST 31 (17-59) U/L ALT 40 (4-49) U/L Alkaline Phosphatase 100 (38-126) U/L Lactate Dehydrogenase 381 (313-618) U/L C-Reactive Protein <5.0 (<10.0) mg/L Total Protein 8.0 (6.3-8.2) g/dL Albumin 4.6 (3.5-5.0) g/dL Coronavirus (PCR) (Not Detectd) 05/03/20 05/03/20 Range/Units 13:21 13:21 WBC (3.8-10.6) k/uL RBC (4.30-5.90) m/uL Hgb (13.0-17.5) gm/dL Hct (39.0-53.0) % MCV (80.0-100.0) fL MCH (25.0-35.0) pg MCHC (31.0-37.0) g/dL RDW (11.5-15.5) % Plt Count (150-450) k/uL MPV Neutrophils % % Lymphocytes % % Monocytes % % Eosinophils % % Basophils % % Neutrophils # (1.3-7.7) k/uL Lymphocytes # (1.0-4.8) k/uL Monocytes # (0-1.0) k/uL Eosinophils # (0-0.7) k/uL Basophils # (0-0.2) k/uL PT (9.0-12.0) sec INR (<1.2) APTT (22.0-30.0) sec Sodium (137-145) mmol/L Potassium (3.5-5.1) mmol/L Chloride (98-107) mmol/L Carbon Dioxide (22-30) mmol/L Anion Gap mmol/L BUN (9-20) mg/dL Creatinine (0.66-1.25) mg/dL Est GFR (CKD-EPI)AfAm (>60 ml/min/1.73 sqM) Est GFR (CKD-EPI)NonAf (>60 ml/min/1.73 sqM) Glucose (74-99) mg/dL Plasma Lactic Acid Fernando 2.1 H* (0.7-2.0) mmol/L Calcium (8.4-10.2) mg/dL Magnesium (1.6-2.3) mg/dL Total Bilirubin (0.2-1.3) mg/dL AST (17-59) U/L ALT (4-49) U/L Alkaline Phosphatase (38-126) U/L Lactate Dehydrogenase (313-618) U/L C-Reactive Protein (<10.0) mg/L Total Protein (6.3-8.2) g/dL Albumin (3.5-5.0) g/dL Coronavirus (PCR) Not Detected (Not Detectd) Disposition Clinical Impression: Nausea vomiting and diarrhea Disposition: HOME SELF-CARE Condition: Good Instructions (If sedation given, give patient instructions): Acute Nausea and Vomiting (ED), Acute Diarrhea (ED) Additional Instructions: Please take Zofran as needed for nausea. Please follow-up with your doctor in one to 2 days. If you are having worsening symptoms return to the emergency room. Is patient prescribed a controlled substance at d/c from ED?: No Referrals: David Lowe [Primary Care Provider] - 1-2 days Time of Disposition: 14:17
[2020-05-03] MEDS ORDERED: SODIUM CHLORIDE 0.9% 1,000 ML IV STA (13:20)
[2020-05-03 13:37] LABS: Basophils % (A) 0 %; Eosinophils # (A) 0.1 k/uL (0-0.7); Eosinophils % (A) 1 %; HCT 46.4 % (39.0-53.0); HGB 15.6 gm/dL (13.0-17.5); Lymphocytes # (A) 1.5 k/uL (1.0-4.8); Lymphocytes % (A) 14 %; MCH 30.4 pg (25.0-35.0); MCHC 33.6 g/dL (31.0-37.0); MCV 90.5 fL (80.0-100.0); Monocytes # (A) 0.4 k/uL (0-1.0); Monocytes % (A) 4 %; Neutrophils % (A) 80 %; Platelet Count 201 k/uL (150-450); RBC 5.13 m/uL (4.30-5.90); RDW 13.2 % (11.5-15.5); WBC 10.1 k/uL (3.8-10.6)
--- NOTE | 2020-05-03 13:43 | XR ---
EXAMINATION TYPE: XR chest 1V portable DATE OF EXAM: 05/03/2020 Comparison: 01/11/2019 Clinical History: 75-year-old male cough, Suspected COVID-19 pneumonia Findings: Left anterior chest wall pacemaker generator with right atrial right ventricular leads. Heart normal size. Aorta and pulmonary vasculature within normal limits. Hazy peripheral densities relating to AP portable technique and overlying soft tissue density. No jose luis consolidation or pleural effusion seen . Impression: No definite acute process.
[2020-05-03 13:50] LABS: INR 0.9 (<1.2)
[2020-05-03 13:51] LABS: Partial Thromboplastin Time 23.3 sec (22.0-30.0); Prothrombin Time 9.9 sec (9.0-12.0)
[2020-05-03 14:02] LABS: ALT 40 U/L (4-49); AST 31 U/L (17-59); African American GFR (CKD) 68 (>60 ml/min/1.73 sqM); Albumin 4.6 g/dL (3.5-5.0); Alkaline Phosphatase 100 U/L (38-126); Anion Gap 7 mmol/L; Blood Urea Nitrogen 15 mg/dL (9-20); C Reactive Protein <5.0 mg/L (<10.0); Calcium 9.6 mg/dL (8.4-10.2); Carbon Dioxide 29 mmol/L (22-30); Chloride 101 mmol/L (98-107); Glucose 186 mg/dL (74-99); LDH 381 U/L (313-618); Magnesium 1.9 mg/dL (1.6-2.3); Non-African American GFR(CKD) 59 (>60 ml/min/1.73 sqM); Potassium 4.3 mmol/L (3.5-5.1); Sodium 137 mmol/L (137-145); Total Bilirubin 0.7 mg/dL (0.2-1.3)
[2020-05-03 14:57] VITALS: BP 128/70; PULSE 72; RESP 18; TEMP 97.7
== END 2020-05-03 15:06 | disposition home or self-care (01) ==
LOC: EC 12:11
DX: R19.7 Diarrhea, unspecified (principal); R11.2 Nausea with vomiting, unspecified; E11.65 Type 2 diabetes mellitus with hyperglycemia; I25.10 Atherosclerotic heart disease of native coronary artery without angina pectoris; Z79.84 Long term (current) use of oral hypoglycemic drugs; Z79.82 Long term (current) use of aspirin; Z88.0 Allergy status to penicillin; Z88.1 Allergy status to other antibiotic agents; Z88.2 Allergy status to sulfonamides; Z20.828 Contact with and (suspected) exposure to other viral communicable diseases; Z95.0 Presence of cardiac pacemaker
CPT/HCPCS: 36415; 93005; 80053; 82728; 83605; 83615; 83735; 85025; 85610; 85730; 86140; 87040; 84145; 87635; 71045; 99284; 96374; 96361; J2405

== ENCOUNTER → 2020-07-12 | Outpatient (CLI) | payer MEDICARE ==
[2020-07-12 14:58] LABS: African American GFR (CKD) 67.2 (60.0-200.0); Albumin 4.7 g/dL (3.80-4.90); Albumin/Globulin Ratio 2.24 (1.60-3.17); Anion Gap 8.6 mmol/L (4.00-12.00); BUN/Creat Ratio 13.33 Ratio (12.00-20.00); Calcium 9.8 mg/dL (8.7-10.3); Carbon Dioxide 28.4 mmol/L (21.6-31.8); Chol/HDL Ratio 5.4; Globulin 2.1 g/dL (1.6-3.3); Potassium 4.6 mmol/L (3.5-5.5); Total Bilirubin 0.5 mg/dL (0.2-1.2); Total Protein 6.8 g/dL (6.2-8.2)
== END | disposition home or self-care (01) ==
LOC: LABWHC1 09:03
PROVIDERS: ATTEND Internal Medicine Interventional Cardiology
DX: E78.2 Mixed hyperlipidemia (principal)
CPT/HCPCS: 36415; 80053; 80061; 83721

== ENCOUNTER → 2020-08-28 | Outpatient (CLI) | payer MEDICARE ==
--- NOTE | 2020-08-28 11:53 | XR ---
EXAMINATION TYPE: XR KUB DATE OF EXAM: 08/28/2020 Comparison: None Clinical History: 75-year-old male N20.0 Findings: Left-sided pelvic phleboliths. Degenerative changes lower lumbar spine. Mild overall stool burden. No definite suspicious calcifications. Nonobstructive bowel gas pattern. Impression: Calcifications involving the left side of the pelvis suspected to represent phleboliths. Mild stool b urden. Nonobstructive bowel gas pattern.
== END | disposition home or self-care (01) ==
LOC: RADXRMAIN 11:11
PROVIDERS: ATTEND Urology
DX: N20.0 Calculus of kidney (principal)
CPT/HCPCS: 74018

== ENCOUNTER 2020-09-22 08:30 | Emergency (ER) | payer MEDICARE ==
[2020-09-22 08:41] VITALS: BP 143/73; PULSE 77; RESP 20; TEMP 97.3
--- NOTE | 2020-09-22 09:03 | ED ---
General Adult HPI - General Chief complaint: Abdominal Pain Stated complaint: bowel problems Time Seen by Provider: 09/22/20 08:46 Source: patient, family, RN notes reviewed Mode of arrival: ambulatory Limitations: no limitations - History of Present Illness Initial comments: Patient is a pleasant 75-year-old male presenting to the emergency department with concerns regarding constipation. Patient states he did not have a bowel movement for 3 days. Patient did take MiraLAX. Patient did have a bowel movement upon presentation to the room in the emergency department and feels fine at this time. Patient has no complaints at this time. No abdominal pain. No nausea vomiting. Patient along her feels constipated. Patient has not had diarrhea. No fevers. - Related Data Home Medications Medication Instructions Recorded Confirmed Aspirin EC [Ecotrin Low Dose] 81 mg PO DAILY 01/11/19 05/03/20 Atorvastatin [Lipitor] 40 mg PO HS 01/11/19 05/03/20 Cholecalciferol (Vitamin D3) 2,000 unit PO DAILY 01/11/19 05/03/20 [Vitamin D3] Levothyroxine Sodium 112 mcg PO DAILY 01/11/19 05/03/20 glipiZIDE [Glucotrol] 2.5 mg PO DAILY 01/11/19 05/03/20 Donepezil [Aricept] 10 mg PO DAILY 05/03/20 05/03/20 Multivit-Min/Folic/Vit K/Lycop 1 tab PO DAILY 05/03/20 05/03/20 [Men's Multivitamin Tablet] Vitamin E Acetate [Vitamin E] 200 unit PO DAILY 05/03/20 05/03/20 Previous Rx's Medication Instructions Recorded Ondansetron Odt [Zofran Odt] 4 mg PO Q8HR PRN 2 Days #6 tab 05/03/20 Allergies Allergy/AdvReac Type Severity Reaction Status Date / Time Penicillins Allergy Rash/Hives Verified 09/22/20 08:41 sulfamethoxazole Allergy Rash/Hives Verified 09/22/20 08:41 [From Bactrim] trimethoprim [From Bactrim] Allergy Rash/Hives Verified 09/22/20 08:41 rye bread AdvReac Unknown Uncoded 09/22/20 08:41 Review of Systems ROS Statement: Those systems with pertinent positive or pertinent negative responses have been documented in the HPI. ROS Other: All systems not noted in ROS Statement are negative. Constitutional: Denies: fever Eyes: Denies: eye pain ENT: Denies: ear pain Respiratory: Denies: cough Cardiovascular: Denies: chest pain Endocrine: Denies: fatigue Gastrointestinal: Reports: as per HPI Genitourinary: Denies: urgency Musculoskeletal: Denies: back pain Skin: Denies: rash Neurological: Denies: weakness Past Medical History Past Medical History: Coronary Artery Disease (CAD), Diabetes Mellitus History of Any Multi-Drug Resistant Organisms: None Reported Past Surgical History: Pacemaker Additional Past Surgical History / Comment(s): pacemaker , carpal tunnel Past Psychological History: No Psychological Hx Reported Smoking Status: Never smoker Past Alcohol Use History: None Reported Past Drug Use History: None Reported General Exam Limitations: no limitations General appearance: alert, in no apparent distress Head exam: Present: atraumatic Eye exam: Present: normal appearance Respiratory exam: Present: normal lung sounds bilaterally Cardiovascular Exam: Present: regular rate, normal rhythm Expanded Peripheral pulses: 2+: Dorsalis Pedis (R), Dorsalis Pedis (L) GI/Abdominal exam: Present: soft, normal bowel sounds. Absent: distended, tenderness, guarding, rebound, pulsatile mass Extremities exam: Present: normal inspection Neurological exam: Present: alert Psychiatric exam: Present: normal affect, normal mood Skin exam: Present: normal color Course Vital Signs 09/22/20 08:39 Temperature 97.3 F L Pulse Rate 77 Respiratory 20 Rate Blood Pressure 143/73 O2 Sat by Pulse 99 Oximetry Medical Decision Making - Medical Decision Making Patient did have normal sized bowel movement for him in the emergency department and is symptom-free at this time. Patient does have an appointment scheduled for gastroenterology on Friday and is advised to keep this. Disposition Clinical Impression: Constipation Disposition: HOME SELF-CARE Condition: Stable Instructions (If sedation given, give patient instructions): Constipation (ED), High Fiber Diet (ED) Additional Instructions: Please do follow-up to primary care physician in the next day or 2 for recheck. Please also follow-up with gastroenterology, Dr. Murphy as scheduled on Friday. Return for abdominal pain, unable to have bowel movement, vomiting, fever, worsening or changing symptoms or other concerns. Is patient prescribed a controlled substance at d/c from ED?: No Referrals: Mynor,David [Primary Care Provider] - 1-2 days Time of Disposition: 09:03
== END 2020-09-22 09:10 | disposition home or self-care (01) ==
LOC: EC 08:30
DX: K59.00 Constipation, unspecified (principal); I25.10 Atherosclerotic heart disease of native coronary artery without angina pectoris; E11.9 Type 2 diabetes mellitus without complications; Z79.82 Long term (current) use of aspirin; Z79.899 Other long term (current) drug therapy; Z79.84 Long term (current) use of oral hypoglycemic drugs; Z88.0 Allergy status to penicillin
CPT/HCPCS: 99283

== ENCOUNTER → 2020-09-27 | Outpatient (CLI) | payer MEDICARE ==
--- NOTE | 2020-09-27 15:19 | XR ---
EXAMINATION TYPE: XR chest 2V DATE OF EXAM: 09/27/2020 COMPARISON: 05/03/2020 HISTORY: Shortness of breath TECHNIQUE: Frontal and lateral views of the chest are obtained. FINDINGS: Scattered senescent parenchymal changes noted. Hyperinflation compatible with COPD. No evidence for infiltrate. No evidence for atelectasis. Heart size is stable. Mediastinal structures are stable and grossly unremarkable. No evidence for hilar prominence. Degenerative changes dorsal spine. IMPRESSION: 1. No evidence for acute pulmonary disease.
--- NOTE | 2020-09-27 15:20 | XR ---
EXAMINATION TYPE: XR lumbar spine 2 or 3V DATE OF EXAM: 09/27/2020 CLINICAL HISTORY: pain TECHNIQUE: Three views of the lumbar spine are submitted. COMPARISON: None. FINDINGS: There are 5 lumbar type vertebral bodies identified. The lumbar spine shows satisfactory alignment w ithout evidence of acute fracture or dislocation. Vertebral body heights are within normal limits. Moderate to severe multilevel degenerative disc space narrowing and facet joint arthropathy. Ventral spondylosis. The overlying soft tissue appears unremarkable. IMPRESSION: No acute fracture or dislocation is seen in the lumbar spine. ICD 10 NO FRACTURE, INITIAL EVALUATION
== END | disposition home or self-care (01) ==
LOC: RADXRMAIN 14:26
PROVIDERS: ATTEND Family Medicine
DX: R42 Dizziness and giddiness (principal); R07.82 Intercostal pain
CPT/HCPCS: 71046; 72100

== ENCOUNTER → 2020-10-17 | Outpatient (CLI) | payer MEDICARE ==
[2020-10-17 17:46] LABS: Gliadin AB IgA, Deaminated NEGATIVE (NEGATIVE); Gliadin AB IgA, Unit 0.3 U/mL; Gliadin AB IgG, Deaminated NEGATIVE (NEGATIVE)
[2020-10-17 18:32] LABS: ALT 29 U/L (10-49); AST 22 U/L (14-35); Cholesterol 279 mg/dL (0-200); Triglycerides >1100.0 mg/dL (0.0-149.0)
== END | disposition home or self-care (01) ==
LOC: LABWHC1 09:15
PROVIDERS: ATTEND Internal Medicine
DX: E78.2 Mixed hyperlipidemia (principal); R14.3 Flatulence
CPT/HCPCS: 36415; 80061; 83516; 83721; 84450; 84460

== ENCOUNTER 2020-10-24 06:41 | Day surgery (SDC) | payer MEDICARE ==
[2020-10-19 14:22] VITALS: BMI 28.0
[2020-10-24] MEDS ORDERED: LIDOCAINE 1% (10MG/ML) FOR IV START INTRADERMA PRN (06:53)
[2020-10-24] MEDS ORDERED: LACTATED RINGERS 1,000 ML IV SCH (06:53)
[2020-10-24 07:09] VITALS: RESP 16; TEMP 98.4
[2020-10-24] MEDS ORDERED: PROPOFOL 10 MG/ML 20 ML VIAL IV ONE (07:41)
--- NOTE | 2020-10-24 08:28 | P.PCN ---
Date of Procedure: 10/24/20 Description of Procedure: BRIEF HISTORY: Patient is a 75-year-old male presenting for outpatient colonoscopy for screening for malignant neoplasm of the colon. No prior colonoscopy. No family history of colon cancer. Patient was seen in the GI office reporting excessive gas, bloating and distention with denying any symptoms of constipation or diarrhea. Celiac testing has been ordered. PROCEDURE PERFORMED: Colonoscopy with polypectomy. PREOPERATIVE DIAGNOSIS: Screening for malignant neoplasm of the colon, no prior colonoscopies. ESTIMATED BLOOD LOSS: Minimal. IV sedation per Anesthesia. PROCEDURE: After informed consent was obtained, the patient, was brought into the endoscopy unit. IV sedation was administered by Anesthesia under continuous monitoring. Digital rectal examination was normal. Initially the Olympus CF-190 flexible video colonoscope was then inserted in the rectum, gradually advanced into the cecum without any difficulty. Careful examination was performed as the scope was gradually being withdrawn. Ileocecal valve and the appendiceal orifice were visualized and appeared normal. Prep was excellent. Mucosa of the cecum, ascending colon, transverse colon, descending colon, sigmoid colon, and rectum appeared normal, with a few scattered diverticula noted in the left colon. An 11 mm ascending colon polyp was removed with hot snare polypectomy. Cold snare polypectomy of a 7 mm hepatic flexure polyp and 6 mm splenic flexure polyp. Retroflexion was performed in the rectum and no lesions were seen, low-grade internal hemorrhoids. The patient tolerated the procedure well. IMPRESSION: Sessile ascending colon polyp removed with hot snare polypectomy. 2 polyps removed with cold snare polypectomy from the hepatic flexure and splenic flexure. Mild left colonic diverticulosis. RECOMMENDATIONS: Findings of this examination were discussed with the patient and his family. Okay to resume diet. Okay to resume medications. Await pathology from polypectomies. Follow-up in the GI clinic as scheduled.
[2020-10-24 08:44] VITALS: BP 164/94; PULSE 73
[2020-10-24 09:00] LABS: Glucose,Whole Blood 148 mg/dL (75-99)
== END 2020-10-24 09:20 | disposition home or self-care (01) ==
LOC: ORWHC2ENDO 06:41
PROVIDERS: ATTEND Internal Medicine
DX: Z12.11 Encounter for screening for malignant neoplasm of colon (principal); D12.2 Benign neoplasm of ascending colon; D12.3 Benign neoplasm of transverse colon; K57.30 Diverticulosis of large intestine without perforation or abscess without bleeding; K64.8 Other hemorrhoids; Z98.890 Other specified postprocedural states; Z95.0 Presence of cardiac pacemaker; E11.9 Type 2 diabetes mellitus without complications; E07.9 Disorder of thyroid, unspecified; Z79.890 Hormone replacement therapy; Z79.84 Long term (current) use of oral hypoglycemic drugs; Z79.82 Long term (current) use of aspirin; Z79.899 Other long term (current) drug therapy; Z88.0 Allergy status to penicillin; Z88.2 Allergy status to sulfonamides; Z91.018 Allergy to other foods
CPT/HCPCS: 88305; 45385; J2704

== ENCOUNTER → 2020-12-06 | Outpatient (CLI) | payer MEDICARE ==
--- NOTE | 2020-12-12 14:12 | P.STRESS ---
- Stress Test Note Stress Test Results/Findings: Exam Performed: Exam Date: Reason for Exam: Height: Weight: Protocol: Stage: Duration of Exercise: Resting Heart Rate: Resting Blood Pressure: Maximum Achieved Heart Rate: Maximum Achieved Blood Pressure: 85% PMHR: 100% PMHR: METS: Technologist Comment: Stress Test Results/Findings: 48 hour Holter monitor shows sinus mechanism with intermittent ventricular pacing Heart rates ranged from 60-126 beats a minute, average 82 beats a minute Occasional atrial couplets and triplets At baseline TN interval is prolonged No sustained arrhythmia
--- NOTE | 2020-12-13 09:10 | HM ---
48 hour Holter monitor shows sinus mechanism with heart racing from 60-126 bpm average 82 beats a minute occasional PVCs Occasional atrial couplets and triplets Intermittent ventricular pacing No atrial fibrillation Suggest Assess A. fib burden via patient's pacemaker telemetry and electrograms ROSE
== END | disposition home or self-care (01) ==
LOC: RADECHMAIN 12:10
PROVIDERS: ATTEND Psychiatry & Neurology Neurology
DX: I49.9 Cardiac arrhythmia, unspecified (principal); R42 Dizziness and giddiness
CPT/HCPCS: 93225; 93226

== ENCOUNTER 2020-12-08 11:07 | Emergency (ER) | payer MEDICARE ==
[2020-12-08 11:18] VITALS: TEMP 98.4
--- NOTE | 2020-12-08 11:59 | ED ---
Back Pain HPI - General Chief Complaint: Back Pain/Injury Stated Complaint: back pain Time Seen by Provider: 12/08/20 11:35 Source: patient Limitations: no limitations - History of Present Illness Initial Comments: Patient is a 75-year-old male presenting to the emergency Department with complaints of left-sided flank pain for a few months now. He describes as intermittent event, no aggravating or alleviating factors. He states he was "cleared by urology", he is currently wearing a Holter monitor to see if these back pains correlate with any irregularities with his heart. He denies any falls or trauma, no previous back surgeries or pain. He denies any fevers or chills, no hematuria, his bowel movements have been regular. He denies any chest pain or shortness of breath. He does not take any Tylenol or Motrin he gets this pain. He has no further complaints at this time. - Related Data Home Medications Medication Instructions Recorded Confirmed Aspirin EC [Ecotrin Low Dose] 81 mg PO DAILY 01/11/19 10/24/20 Atorvastatin [Lipitor] 40 mg PO HS 01/11/19 10/24/20 glipiZIDE [Glucotrol] 2.5 mg PO DAILY 01/11/19 10/24/20 Donepezil [Aricept] 10 mg PO DAILY 05/03/20 10/24/20 Multivit-Min/Folic/Vit K/Lycop 1 tab PO DAILY 05/03/20 10/24/20 [Men's Multivitamin Tablet] Vitamin E Acetate [Vitamin E] 200 unit PO DAILY 05/03/20 10/24/20 Ascorbic Acid [Vitamin C] 500 mg PO DAILY 10/19/20 10/24/20 Cholecalciferol [Vitamin D3 (25 25 mcg PO DAILY 10/19/20 10/24/20 Mcg = 1000 Iu)] Levothyroxine Sodium [Synthroid] 100 mcg PO DAILY 10/19/20 10/24/20 Pyridoxine HCl (Vitamin B6) 100 mg PO DAILY 10/19/20 10/24/20 [Vitamin B-6] Allergies Allergy/AdvReac Type Severity Reaction Status Date / Time Penicillins Allergy Rash/Hives Verified 12/08/20 11:18 sulfamethoxazole Allergy Rash/Hives Verified 12/08/20 11:18 [From Bactrim] trimethoprim [From Bactrim] Allergy Rash/Hives Verified 12/08/20 11:18 rye bread AdvReac Unknown Uncoded 12/08/20 11:18 Review of Systems ROS Statement: Those systems with pertinent positive or pertinent negative responses have been documented in the HPI. ROS Other: All systems not noted in ROS Statement are negative. Past Medical History Past Medical History: Diabetes Mellitus, Hyperlipidemia, Memory Impairment, Prostate Disorder, Thyroid Disorder Additional Past Medical History / Comment(s): seizures 5 yrs ago from heart problems, pacemaker works only 1 % per S.O, having dizzy spells, History of Any Multi-Drug Resistant Organisms: None Reported Past Surgical History: Pacemaker Additional Past Surgical History / Comment(s): pacemaker , carpal tunnel Past Anesthesia/Blood Transfusion Reactions: No Reported Reaction Type of Cardiac Device: Permanent Pacemaker Device Placement Date:: 06/2017 Past Psychological History: No Psychological Hx Reported Smoking Status: Never smoker Past Alcohol Use History: None Reported Past Drug Use History: Unable to Obtain - Past Family History Brother(s) Family Medical History: Cancer General Exam - General Exam Comments Initial Comments: GENERAL: Patient is well-developed and well-nourished. Patient is nontoxic and in no acute distress. HEAD: Atraumatic, normocephalic. EYES: Pupils equal round and reactive to light, extraocular movements intact, sclera anicteric, conjunctiva are normal. Eyelids were unremarkable. ENT: Nares patent, oropharynx clear without exudates. Moist mucous membranes. NECK: Normal range of motion, supple without lymphadenopathy or JVD. LUNGS: Unlabored respirations. Breath sounds clear to auscultation bilaterally and equal. No wheezes rales or rhonchi. HEART: Regular rate and rhythm without murmurs, rubs or gallops. ABDOMEN: Soft, nontender, normoactive bowel sounds. No guarding, no rebound. No masses appreciated. : Deferred MUSCULOSKELETAL: Normal extremities with adequate strength and normal range of motion, no pitting or edema. No clubbing or cyanosis. No lumbar pain with palpation, no midline tenderness. NEUROLOGICAL: Patient is alert and oriented x 3. Motor and sensory are also intact. Cranial nerves II through XII grossly intact. Symmetrical smile. Normal speech, normal gait. PSYCH: Normal mood, normal affect. SKIN: Warm, Dry, normal turgor, no rashes or lesions noted. Limitations: no limitations Course Vital Signs 12/08/20 11:14 Temperature 98.4 F Pulse Rate 87 Respiratory 20 Rate Blood Pressure 134/77 O2 Sat by Pulse 98 Oximetry Medical Decision Making - Medical Decision Making Patient is a 75-year-old male here with intermittent left flank pain over the past few months. He did have an x-ray from Dr. Cruz, no abnormalities, he is currently wearing a Holter monitor to see if his back pains correlate with any heart irregularities. He denies any chest pain or short of breath today. His vital signs are stable. Patient has no back pain on palpation today. Labs are all unremarkable, all within normal limits, urine is normal. No hematuria. Lumbar x-ray reveals degenerative changes, no acute new findings. CT the abdomen and pelvis also revealed no acute findings. I discussed these findings with the patient. Patient has had a few little bursts of pain while in our ER but is pain-free right now. I recommend continue to follow-up with his primary care physician or further investigation. I recommended ibuprofen for any disco mfort. Patient is in agreement with this plan of care and is stable for discharge. Case discussed with . - Lab Data Result diagrams: 12/08/20 12:37 12/08/20 12:37 Lab Results 12/08/20 12/08/20 12/08/20 Range/Units 12:37 12:37 12:37 WBC 6.3 (3.8-10.6) k/uL RBC 4.53 (4.30-5.90) m/uL Hgb 14.3 (13.0-17.5) gm/dL Hct 40.8 (39.0-53.0) % MCV 90.3 (80.0-100.0) fL MCH 31.7 (25.0-35.0) pg MCHC 35.1 (31.0-37.0) g/dL RDW 12.7 (11.5-15.5) % Plt Count 204 (150-450) k/uL MPV 7.0 Neutrophils % 50 % Lymphocytes % 37 % Monocytes % 6 % Eosinophils % 4 % Basophils % 1 % Neutrophils # 3.1 (1.3-7.7) k/uL Lymphocytes # 2.3 (1.0-4.8) k/uL Monocytes # 0.4 (0-1.0) k/uL Eosinophils # 0.2 (0-0.7) k/uL Basophils # 0.1 (0-0.2) k/uL Sodium 140 (137-145) mmol/L Potassium 4.0 (3.5-5.1) mmol/L Chloride 107 (98-107) mmol/L Carbon Dioxide 27 (22-30) mmol/L Anion Gap 6 mmol/L BUN 10 (9-20) mg/dL Creatinine 0.82 (0.66-1.25) mg/dL Est GFR (CKD-EPI)AfAm >90 (>60 ml/min/1.73 sqM) Est GFR (CKD-EPI)NonAf 85 (>60 ml/min/1.73 sqM) Glucose 169 H (74-99) mg/dL Calcium 9.5 (8.4-10.2) mg/dL Total Bilirubin 0.3 (0.2-1.3) mg/dL AST 26 (17-59) U/L ALT 25 (4-49) U/L Alkaline Phosphatase 90 (38-126) U/L Total Protein 6.9 (6.3-8.2) g/dL Albumin 4.0 (3.5-5.0) g/dL Urine Color Yellow Urine Appearance Clear (Clear) Urine pH 5.0 (5.0-8.0) Ur Specific [place] 1.023 (1.001-1.035) Urine Protein Negative (Negative) Urine Glucose (UA) 2+ H (Negative) Urine Ketones Negative (Negative) Urine Blood Negative (Negative) Urine Nitrite Negative (Negative) Urine Bilirubin Negative (Negative) Urine Urobilinogen <2.0 (<2.0) mg/dL Ur Leukocyte Esterase Negative (Negative) Disposition Clinical Impression: Mechanical back pain Disposition: HOME SELF-CARE Condition: Stable Instructions (If sedation given, give patient instructions): Chronic Back Pain (DC) Additional Instructions: Please return to the Emergency Department if symptoms worsen or any other concerns. Recommend ibuprofen or Tylenol for any discomfort. Please continue to follow-up with your primary care physician. Is patient prescribed a controlled substance at d/c from ED?: No Referrals: David Lowe [Primary Care Provider] - 1-2 days Time of Disposition: 13:51
[2020-12-08 12:47] LABS: Basophils # (A) 0.1 k/uL (0-0.2); Basophils % (A) 1 %; Eosinophils # (A) 0.2 k/uL (0-0.7); Eosinophils % (A) 4 %; HCT 40.8 % (39.0-53.0); HGB 14.3 gm/dL (13.0-17.5); Lymphocytes # (A) 2.3 k/uL (1.0-4.8); Lymphocytes % (A) 37 %; MCH 31.7 pg (25.0-35.0); MCHC 35.1 g/dL (31.0-37.0); MCV 90.3 fL (80.0-100.0); Monocytes # (A) 0.4 k/uL (0-1.0); Monocytes % (A) 6 %; Neutrophils # (A) 3.1 k/uL (1.3-7.7); Neutrophils % (A) 50 %; Platelet Count 204 k/uL (150-450); RBC 4.53 m/uL (4.30-5.90); RDW 12.7 % (11.5-15.5); WBC 6.3 k/uL (3.8-10.6)
[2020-12-08 12:51] LABS: Appearance,Urine Clear (Clear); Bilirubin,Urine Negative (Negative); Blood,Urine Negative (Negative); Color,Urine Yellow; Glucose,Urine (UA) 2+ (Negative); Ketones,Urine Negative (Negative); Leukocyte Esterase,Urine Negative (Negative); Nitrite,Urine Negative (Negative); Protein,Urine Negative (Negative); Specific Gravity,Urine 1.023 (1.001-1.035); Urobilinogen,Urine <2.0 mg/dL (<2.0)
[2020-12-08 13:03] LABS: ALT 25 U/L (4-49); AST 26 U/L (17-59); African American GFR (CKD) >90 (>60 ml/min/1.73 sqM); Alkaline Phosphatase 90 U/L (38-126); Anion Gap 6 mmol/L; Blood Urea Nitrogen 10 mg/dL (9-20); Calcium 9.5 mg/dL (8.4-10.2); Carbon Dioxide 27 mmol/L (22-30); Chloride 107 mmol/L (98-107); Glucose 169 mg/dL (74-99); Non-African American GFR(CKD) 85 (>60 ml/min/1.73 sqM); Sodium 140 mmol/L (137-145); Total Bilirubin 0.3 mg/dL (0.2-1.3); Total Protein 6.9 g/dL (6.3-8.2)
--- NOTE | 2020-12-08 13:36 | XR ---
EXAMINATION TYPE: XR lumbar spine 2 or 3V DATE OF EXAM: 12/08/2020 CLINICAL HISTORY: Left-sided pain. TECHNIQUE: Frontal and lateral images of the lumbar spine are obtained. COMPARISON: Lumbar spine x-ray September 27, 2020. FINDINGS: There are 5 lumbar type vertebral bodies redemonstrated. The lumbar spine shows stable an d satisfactory alignment without evidence of acute fracture or dislocation. Stable slight grade 1 ret rolisthesis L2 on L3 and L3 on L4 Vertebral body heights remain within normal limits. Mild to moderat e multilevel spurring and disc space narrowing greatest at L1-L2 level redemonstrated. Facet arthrop athy lower lumbar spine. The overlying soft tissue appears unremarkable. IMPRESSION: As above. No significant change from prior
--- NOTE | 2020-12-08 13:40 | CT ---
EXAMINATION TYPE: CT abdomen pelvis w con DATE OF EXAM: 12/08/2020 COMPARISON: None HISTORY: Lt flank pain CT DLP: 987 mGycm CONTRAST: CT scan of the abdomen and pelvis is performed without Oral Contrast and with IV Contrast, patient in jected with 100 mL of Isovue 300. FINDINGS: LUNG BASES-: No visible nodule. No infiltrate. LIVER/GB: No calcified gallstones. No space occupying hepatic lesion. Biliary tree is of normal ca liber. PANCREAS: No inflammation. No distinct mass. SPLEEN: No splenic enlargement. No lesion seen. ADRENALS: No nodule. No thickening. KIDNEYS/BLADDER: No hydronephrosis. No nephrolithiasis. No distinct renal mass. Urinary bladder g rossly unremarkable. BOWEL: Normal appendix. Normal bowel caliber. No inflammation. GENITAL ORGANS: No gross abnormality. LYMPH NODES: No greater than 1cm abdominal or pelvic lymph nodes are appreciated. AORTA: No significant abnormality. OSSEOUS STRUCTURES: No significant abnormality is seen. OTHER: No significant additional abnormality is seen. IMPRESSION: 1. No acute process identified to account for the patient's symptoms.
[2020-12-08 13:57] VITALS: BP 136/89; PULSE 89; RESP 16
== END 2020-12-08 13:56 | disposition home or self-care (01) ==
LOC: EC 11:07
DX: M54.9 Dorsalgia, unspecified (principal); R10.9 Unspecified abdominal pain; E11.9 Type 2 diabetes mellitus without complications; E78.5 Hyperlipidemia, unspecified; Z79.82 Long term (current) use of aspirin; Z79.84 Long term (current) use of oral hypoglycemic drugs; Z88.0 Allergy status to penicillin
CPT/HCPCS: 36415; 80053; 85025; 81003; 72100; 74177; 99284; Q9967

== ENCOUNTER → 2020-12-26 | Outpatient (CLI) | payer MEDICARE ==
[2020-12-26 17:57] LABS: Chol/HDL Ratio 4.94; LDL Cholesterol,Calculated 93.6 mg/dL (0.0-131.0); VLDL Calculation 44.4 mg/dL (5.00-40.00)
== END | disposition home or self-care (01) ==
LOC: LABWHC1 10:13
PROVIDERS: ATTEND Nurse Practitioner Adult Health
DX: E78.2 Mixed hyperlipidemia (principal)
CPT/HCPCS: 36415; 80061; 84450; 84460

== ENCOUNTER → 2020-12-27 | Outpatient (CLI) | payer MEDICARE ==
--- NOTE | 2020-12-27 13:00 | US ---
EXAMINATION TYPE: US carotid duplex BILAT DATE OF EXAM: 12/27/2020 COMPARISON: NONE CLINICAL HISTORY: I65.29 Occlusion and stenosis of carotid.stenosis EXAM MEASUREMENTS: RIGHT: Peak Systolic Velocity (PSV) cm/sec ----- Right CCA: 99.7 ----- Right ICA: 105.5 ----- Right ECA: 155.4 ICA/CCA ratio: 1.1 RIGHT: End Diastole cm/sec ----- Right CCA: 12.5 ----- Right ICA: 12.5 ----- Right ECA: 0 LEFT: Peak Systolic Velocity (PSV) cm/sec ----- Left CCA: 127.6 ----- Left ICA: 99.7 ----- Left ECA: 178.7 ICA/CCA ratio: 0.8 LEFT: End Diastole cm/sec ----- Left CCA: 20.7 ----- Left ICA: 13.7 ----- Left ECA: 13.7 VERTEBRALS (direction of flow): Right Vertebral: Antegrade Left Vertebral: Antegrade Rhythm: Normal No significant stenosis seen IMPRESSION: 1. No significant flow-limiting stenosis internal carotid arteries. 2. There may be some narrowing of the external carotid arteries bilaterally NASCET criteria was used in interpretation of this exam? Criteria for Assigning % of Stenosis / Diameter reduction (Estimation based on the indirect measurements of the internal carotid artery velocities (ICA PSV). 1. Normal (no stenosis)=ICA PSV < 125 cm/s: ratio < 2.0: ICA EDV<40 cm/s. 2. Less than 50% stenosis=ICA PSV < 125 cm/s: ratio < 2.0: ICA EDV<40 cm/s. 3. 50 to 69% stenosis=ICA PSV of 125 to 230 cm/s: ration 2.0 ? 4.0: ICA EDV 40-100 cm/s. 4. Greater than 70% stenosis to near occlusion= ICA PSV > 230 cm/s: ratio > 4.0: ICA EDV > 100 cm/s. 5. Near occlusion= ICA PSV velocities may be low or undetectable: variable ratio and ICA EDV. 6. Total occlusion=unable to detect flow.
== END | disposition home or self-care (01) ==
LOC: RADUSWWP 10:41
PROVIDERS: ATTEND Psychiatry & Neurology Neurology
DX: I65.29 Occlusion and stenosis of unspecified carotid artery (principal); R42 Dizziness and giddiness
CPT/HCPCS: 93880

== ENCOUNTER 2021-01-03 11:43 | Observation (INO) | payer MEDICARE ==
--- NOTE | 2021-01-03 12:17 | ED ---
General Adult HPI - General Chief complaint: Dizziness Stated complaint: PCP sent Low BP Time Seen by Provider: 01/03/21 12:00 Source: patient, RN notes reviewed, old records reviewed Mode of arrival: ambulatory Limitations: no limitations - History of Present Illness Initial comments: This is a 75-year-old male presents emergency Department complaining that he had an episode where he thought he was given a passout. Patient states episode lasted about half an hour. Patient states he didn't feel off balance he felt like he was given go unconscious. Patient denies any headache patient denies numbness weakness. Patient denies any chest pain or palpitations. Patient denies any difficulty breathing shortness breath per patient denies any recent fever chills or cough. Patient states currently has no symptoms at all. Patient does not know if he had these symptoms before the says he has dementia and he has had these occasionally but never lasting half an hour. Patient's states he has some sort of carotid abnormality that they're looking into but they have been unable to get any results. Patient denies any recent injury or trauma - Related Data Home Medications Medication Instructions Recorded Confirmed Aspirin EC [Ecotrin Low Dose] 81 mg PO DAILY 01/11/19 10/24/20 Atorvastatin [Lipitor] 40 mg PO HS 01/11/19 10/24/20 glipiZIDE [Glucotrol] 2.5 mg PO DAILY 01/11/19 10/24/20 Donepezil [Aricept] 10 mg PO DAILY 05/03/20 10/24/20 Multivit-Min/Folic/Vit K/Lycop 1 tab PO DAILY 05/03/20 10/24/20 [Men's Multivitamin Tablet] Vitamin E Acetate [Vitamin E] 200 unit PO DAILY 05/03/20 10/24/20 Ascorbic Acid [Vitamin C] 500 mg PO DAILY 10/19/20 10/24/20 Cholecalciferol [Vitamin D3 (25 25 mcg PO DAILY 10/19/20 10/24/20 Mcg = 1000 Iu)] Levothyroxine Sodium [Synthroid] 100 mcg PO DAILY 10/19/20 10/24/20 Pyridoxine HCl (Vitamin B6) 100 mg PO DAILY 10/19/20 10/24/20 [Vitamin B-6] Allergies Allergy/AdvReac Type Severity Reaction Status Date / Time Penicillins Allergy Rash/Hives Verified 07/09/21 11:18 sulfamethoxazole Allergy Rash/Hives Verified 12/08/20 11:18 [From Bactrim] trimethoprim [From Bactrim] Allergy Rash/Hives Verified 12/08/20 11:18 rye bread AdvReac Unknown Uncoded 12/08/20 11:18 Review of Systems ROS Statement: Those systems with pertinent positive or pertinent negative responses have been documented in the HPI. ROS Other: All systems not noted in ROS Statement are negative. Past Medical History Past Medical History: Diabetes Mellitus, Hyperlipidemia, Memory Impairment, Prostate Disorder, Thyroid Disorder Additional Past Medical History / Comment(s): seizures 5 yrs ago from heart problems, pacemaker works only 1 % per S.O, having dizzy spells, History of Any Multi-Drug Resistant Organisms: None Reported Past Surgical History: Pacemaker Additional Past Surgical History / Comment(s): pacemaker , carpal tunnel Past Anesthesia/Blood Transfusion Reactions: No Reported Reaction Type of Cardiac Device: Permanent Pacemaker Device Placement Date:: 06/2017 Past Psychological History: No Psychological Hx Reported Smoking Status: Never smoker Past Alcohol Use History: None Reported Past Drug Use History: Unable to Obtain - Past Family History Brother(s) Family Medical History: Cancer General Exam - General Exam Comments Initial Comments: GENERAL: Patient is well-developed and well-nourished. Patient is nontoxic and well- hydrated and is in no acute distress. ENT: Neck is soft and supple. No significant lymphadenopathy is noted. Oropharynx is clear. Moist mucous membranes. Neck has full range of motion without eliciting any pain. EYES: The sclera were anicteric and conjunctiva were pink and moist. Extraocular movements were intact and pupils were equal round and reactive to light. Eyelids were unremarkable. PULMONARY: Unlabored respirations. Good breath sounds bilaterally. No audible rales rhonchi or wheezing was noted. CARDIOVASCULAR: There is a regular rate and rhythm without any murmurs gallops or rubs. ABDOMEN: Soft and nontender with normal bowel sounds. No palpable organomegaly was noted. There is no palpable pulsatile mass. SKIN: Skin is clear with no lesions or rashes and otherwise unremarkable. NEUROLOGIC: Patient is alert and oriented x3. Cranial nerves II through XII are grossly intact. Motor and sensory are also intact. Normal speech, volume and content. Symmetrical smile. MUSCULOSKELETAL: Normal extremities with adequate strength and full range of motion. No lower extremity swelling or edema. No calf tenderness. LYMPHATICS: No significant lymphadenopathy is noted PSYCHIATRIC: Normal psychiatric evaluation. Normal interpersonal interactions appears functionally intact in deals appropriately with others. No signs of depression. No signs of anxiety. No delusions. No hallucinations. 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 Patient's EKG shows no ST segment elevation or depression. Chest x-ray shows no acute abnormality. Patient got up to use the bathroom and again felt like he was given a passout. Nothing was noted on the monitor. Blood pressure was normal. I spoke with Dr. Breen she agreed to admit the patient admitted the patient I wrote admitting orders she wanted cardiology consult appeared - Lab Data Result diagrams: 01/03/21 12:24 01/03/21 12:24 Lab Results 01/03/21 01/03/21 01/03/21 Range/Units 12:24 12:24 12:24 WBC 6.7 (3.8-10.6) k/uL RBC 4.66 (4.30-5.90) m/uL Hgb 14.9 (13.0-17.5) gm/dL Hct 43.5 (39.0-53.0) % MCV 93.4 (80.0-100.0) fL MCH 32.0 (25.0-35.0) pg MCHC 34.3 (31.0-37.0) g/dL RDW 12.8 (11.5-15.5) % Plt Count 252 (150-450) k/uL MPV 7.5 Neutrophils % 55 % Lymphocytes % 33 % Monocytes % 6 % Eosinophils % 3 % Basophils % 1 % Neutrophils # 3.6 (1.3-7.7) k/uL Lymphocytes # 2.2 (1.0-4.8) k/uL Monocytes # 0.4 (0-1.0) k/uL Eosinophils # 0.2 (0-0.7) k/uL Basophils # 0.0 (0-0.2) k/uL PT 10.8 (9.0-12.0) sec INR 1.0 (<1.2) APTT 24.0 (22.0-30.0) sec Sodium 142 (137-145) mmol/L Potassium 4.5 (3.5-5.1) mmol/L Chloride 107 (98-107) mmol/L Carbon Dioxide 23 (22-30) mmol/L Anion Gap 12 mmol/L BUN 13 (9-20) mg/dL Creatinine 1.09 (0.66-1.25) mg/dL Est GFR (CKD-EPI)AfAm 75 (>60 ml/min/1.73 sqM) Est GFR (CKD-EPI)NonAf 65 (>60 ml/min/1.73 sqM) Glucose 216 H (74-99) mg/dL Calcium 9.8 (8.4-10.2) mg/dL Magnesium 2.0 (1.6-2.3) mg/dL Total Bilirubin 0.6 (0.2-1.3) mg/dL AST 37 (17-59) U/L ALT 28 (4-49) U/L Alkaline Phosphatase 86 (38-126) U/L Troponin I (0.000-0.034) ng/mL Total Protein 8.0 (6.3-8.2) g/dL Albumin 4.8 (3.5-5.0) g/dL 01/03/21 Range/Units 12:24 WBC (3.8-10.6) k/uL RBC (4.30-5.90) m/uL Hgb (13.0-17.5) gm/dL Hct (39.0-53.0) % MCV (80.0-100.0) fL MCH (25.0-35.0) pg MCHC (31.0-37.0) g/dL RDW (11.5-15.5) % Plt Count (150-450) k/uL MPV Neutrophils % % Lymphocytes % % Monocytes % % Eosinophils % % Basophils % % Neutrophils # (1.3-7.7) k/uL Lymphocytes # (1.0-4.8) k/uL Monocytes # (0-1.0) k/uL Eosinophils # (0-0.7) k/uL Basophils # (0-0.2) k/uL PT (9.0-12.0) sec INR (<1.2) APTT (22.0-30.0) sec Sodium (137-145) mmol/L Potassium (3.5-5.1) mmol/L Chloride (98-107) mmol/L Carbon Dioxide (22-30) mmol/L Anion Gap mmol/L BUN (9-20) mg/dL Creatinine (0.66-1.25) mg/dL Est GFR (CKD-EPI)AfAm (>60 ml/min/1.73 sqM) Est GFR (CKD-EPI)NonAf (>60 ml/min/1.73 sqM) Glucose (74-99) mg/dL Calcium (8.4-10.2) mg/dL Magnesium (1.6-2.3) mg/dL Total Bilirubin (0.2-1.3) mg/dL AST (17-59) U/L ALT (4-49) U/L Alkaline Phosphatase (38-126) U/L Troponin I <0.012 (0.000-0.034) ng/mL Total Protein (6.3-8.2) g/dL Albumin (3.5-5.0) g/dL Disposition Clinical Impression: Near syncope Disposition: ADMITTED IP TO THIS [facility] Referrals: Isauro Louie MD [Primary Care Provider] - 1-2 days Time of Disposition: 14:56
--- NOTE | 2021-01-03 12:41 | XR ---
EXAMINATION TYPE: XR chest 2V DATE OF EXAM: 01/03/2021 COMPARISON: 09/27/2020 INDICATION: Chest pain TECHNIQUE: Frontal and lateral views of the chest are obtained. FINDINGS: The heart size is normal. The pulmonary vasculature is normal. The lungs are clear. Pacemaker overlies left chest. IMPRESSION: 1. No acute pulmonary process.
[2021-01-03 12:42] LABS: Basophils % (A) 1 %; Eosinophils # (A) 0.2 k/uL (0-0.7); Eosinophils % (A) 3 %; HCT 43.5 % (39.0-53.0); HGB 14.9 gm/dL (13.0-17.5); Lymphocytes # (A) 2.2 k/uL (1.0-4.8); Lymphocytes % (A) 33 %; MCHC 34.3 g/dL (31.0-37.0); MCV 93.4 fL (80.0-100.0); Mean Platelet Volume 7.5; Monocytes # (A) 0.4 k/uL (0-1.0); Monocytes % (A) 6 %; Neutrophils # (A) 3.6 k/uL (1.3-7.7); Neutrophils % (A) 55 %; Platelet Count 252 k/uL (150-450); RBC 4.66 m/uL (4.30-5.90); RDW 12.8 % (11.5-15.5); WBC 6.7 k/uL (3.8-10.6)
[2021-01-03 12:46] LABS: Albumin 4.8 g/dL (3.5-5.0); Calcium 9.8 mg/dL (8.4-10.2); Potassium 4.5 mmol/L (3.5-5.1); Total Bilirubin 0.6 mg/dL (0.2-1.3)
[2021-01-03 13:15] LABS: Prothrombin Time 10.8 sec (9.0-12.0)
[2021-01-03] MEDS ORDERED: NITROGLYCERIN SL TABS 0.4 MG TAB SUBLINGUAL PRN (14:56)
[2021-01-03 16:36] LABS: Glucose,Whole Blood 121 mg/dL (75-99)
[2021-01-03] MEDS ORDERED: MECLIZINE 25 MG TAB PO PRN (17:30)
[2021-01-03 20:27] LABS: Glucose,Whole Blood 241 mg/dL (75-99)
[2021-01-03] MEDS ORDERED: ATORVASTATIN 40 MG TAB PO SCH (21:00)
[2021-01-04 01:57] VITALS: RESP 16; TEMP 97.7
[2021-01-04] MEDS ORDERED: LEVOTHYROXINE 100 MCG TAB PO SCH (06:30)
[2021-01-04 07:01] LABS: Glucose,Whole Blood 132 mg/dL (75-99)
[2021-01-04] MEDS: INSULIN ASPART (NovoLOG) 100 UNIT/ML VIAL SQ SCH ×2 (07:50→12:19)
[2021-01-04] MEDS ORDERED: ASPIRIN 325 MG TAB PO SCH (09:00)
[2021-01-04] MEDS ORDERED: VITAMIN E (DL,TOCOPHERYL ACET) 400 UNIT (180 MG) CAP PO SCH (09:00)
[2021-01-04] MEDS ORDERED: FAMOTIDINE 20 MG TAB PO SCH (09:00)
[2021-01-04] MEDS ORDERED: FENOFIBRATE 160 MG TAB PO SCH (09:00)
[2021-01-04] MEDS ORDERED: ASPIRIN 81 MG PO SCH (09:00)
--- NOTE | 2021-01-04 09:25 | CONS ---
CONSULTATION Mr. Bueno is a 75-year-old male with known history of diabetes, hyperlipidemia, history of permanent pacemaker implantation and mild coronary artery disease by cardiac catheterization in April 2020 who presented with symptoms of dizziness. The dizziness occurred at rest. Lasting for about 10 minutes, not associated with any syncope. He did not feel any palpitation. He denied any chest pain. His breathing has been stable. He has no PND, orthopnea, or peripheral edema. The patient had a permanent pacemaker implantation in 2018 and most recent interrogation of his pacemaker reveals normal sensing and pacing. He has a preserved left ventricular systolic function in the past. His coronary risk factors are remarkable for diabetes and hyperlipidemia. MEDICATION: Include Glucotrol, Pepcid, Aricept 10 mg daily, Lipitor 40 mg daily, Antivert, Synthroid, fenofibrate, aspirin, vitamin E, and vitamin C. REVIEW OF SYSTEMS: RESPIRATORY system: He has no documented history of asthma, emphysema or bronchitis. GI system: No recent GI bleeding. No peptic ulcer disease. system: No dysuria or hematuria. NERVOUS SYSTEM: No history of stroke or seizure. PHYSICAL EXAMINATION: He is a 75-year-old male, alert, oriented, in no apparent distress. Blood pressure 123/68 with a heart rate in the 70s. HEAD: Normocephalic. Eyes sclerae anicteric. NECK: Good carotid upstroke. No bruit. No jugular venous distention. LUNGS: Clear to auscultation. HEART: Regular rhythm S1, S2. No S3 with a systolic ejection murmur. No diastolic murmur. No rub. ABDOMEN: Soft, nontender. Positive bowel sounds. No megaly. EXTREMITIES: No edema. Intact distal pulses. LAB DATA: Lab data revealed a troponin less than 0.012. BUN and creatinine 13 and 1.09. Potassium 4.5, hemoglobin 14.9. EKG revealed a sinus mechanism, rate of 76, normal axis and intervals. Poor R wave progression. Chest x-ray shows no acute infiltrate. IMPRESSION: 1. Symptoms of dizziness of unclear etiology. No evidence to suggest pacemaker malfunction on the monitor. Patient has been stable. 2. History of permanent pacemaker implantation. 3. Mild coronary artery disease. 4. History of diabetes. 5. Hyperlipidemia. RECOMMENDATIONS: From the cardiac standpoint, I would recommend to interrogate his device and I will obtain echocardiogram with Doppler. If there is no abnormality, then I would expect the patient to be able to be discharged home today and followed as an outpatient. Thank you for this consult. We will follow with you. GIO / JOSE LUIS: [id number] /
[2021-01-04 10:40] LABS: Chol/HDL Ratio 4.88; LDL Cholesterol,Calculated 85.8 mg/dL (0.0-131.0); VLDL Calculation 77.2 mg/dL (5.00-40.00)
[2021-01-04 11:37] LABS: Glucose,Whole Blood 141 mg/dL (75-99)
--- NOTE | 2021-01-04 13:14 | CT ---
EXAMINATION TYPE: CT brain wo con DATE OF EXAM: 01/04/2021 COMPARISON: 02/14/2020 HISTORY: Dizziness with abnormal gait CT DLP: 1171 mGycm Automated exposure control for dose reduction was used. FINDINGS: The ventricles, basal cisterns and sulci overlying the cerebral convexities demonstrate moderate enla rgement. There is no evidence for intracranial hemorrhage or sulcal effacement. There is decreased at tenuation about the periventricular white matter and deep white matter of both cerebral hemispheres, compatible with chronic small vessel ischemia. Differential diagnosis does include demyelination. No mass effects are seen. No midline shift. Osseous calvarium is intact. Orbits are symmetric. Calvarium intact. Sinuses are clear. If symptoms p ersist consider MRI. IMPRESSION: DEGENERATIVE AND NONSPECIFIC WHITE MATTER CHANGES MOST TYPICAL OF REMOTE WHITE MATTER ISCHEMIA SIMILA R TO THE PRIOR EXAM. GREATER CENTRAL COMPONENT OF THE VENTRICULAR DILATION CAN OCCASIONALLY BE ASSOCI ATED WITH NORMAL PRESSURE HYDROCEPHALUS CORRELATE CLINICALLY.
--- NOTE | 2021-01-04 13:19 | P.HPIM ---
History of Present Illness H&P Date: 01/04/21 HISTORY OF PRESENT ILLNESS This is a 75-year-old male patient of Drs. Louie, Dread and Jake with PMH of diabetes mellitus type 2, hyperlipidemia, permanent pacemaker implantation, coronary artery disease with previous heart catheterization in April 2020, dementia. Patient complains of ongoing problems with dizziness. He has had full workup with Dr. Canada including carotid ultrasound which was negative for hemodynamically significant stenosis. Patient's [id number] is at bedside and states that since the patient's in 2015 he has had problems with dizz iness. She states that yesterday she was at the doctor's office and came home and he was complaining of dizziness and his blood pressure was 102/56. Patient is not on blood pressure medications. He does have an appointment coming up with Dr. Garsia. Patient came into [facility] emergency center for evaluation. , Heart rate in the 70s, blood pressure 112/65, pulse ox 97% on room air. Orthostatic vital signs were negative. EKG was a sinus rhythm with poor R-wave progression. Chest x-ray showed no acute process. Laboratory studies revealed normal CBC, normal electrolytes and renal function. Blood sugars running between 132 and 241. Magnesium 2.0, liver function tests were normal. Troponin negative on 3 draws. Triglycerides 386, cholesterol 205, LDL 85, HDL 42. Patient was placed on the observation unit and seen by cardiology. His device is to be interrogated and obtain echocardiogram. If no abnormality, patient is cleared for discharge and follow-up as an outpatient. REVIEW OF SYSTEMS Constitutional: No fever, no chills, no night sweats. No weight change. No weakness, fatigue or lethargy. No daytime sleepiness. EENT: No headache. No blurred vision or double vision, no loss of vision. No loss of Hearing, no ringing in the ears, no dizziness. No nasal drainage or congestion. No epistaxis. No sore throat. Lungs: No shortness of breath, cough, no sputum production. No wheezing. Cardiovascular: No chest pain, no lower extremity edema. No palpitations. No paroxysmal nocturnal dyspnea. No orthopnea. No lightheadedness reports dizziness. No syncopal episodes. Abdominal: No abdominal pain. No nausea, vomiting. No diarrhea. No constipation. No bloody or tarry stools.. No loss of appetite. Genitourinary: No dysuria, increased frequency, urgency. No urinary retention. Musculoskeletal: No myalgias. No muscle weakness, no gait dysfunction, no frequent falls. No back pain. No neck pain. Integumentary: No wounds, no lesions. No rash or pruritus. No unusual bruising. No change in hair or nails. Neurologic: No aphasia. No facial droop. No change in mentation. No head injury. No headache. No paralysis. No paresthesia. Psychiatric: No depression. No anxiety. No mood swings. Endocrine: No abnormal blood sugars. No weight change. No excessive sweating or thirst. No cold intolerance. SOCIAL HISTORY Patient was a lifelong nonsmoker but was exposed to secondhand smoke with his . He does have a history of heavy alcohol abuse but quit a number of years ago. No illicit drug use, no marijuana use. He currently lives with Mikki his [id number]. FAMILY HISTORY Mother is alive at age 102 with Alzheimer's dementia. Father of coronary artery disease with history of CABG. Patient has 4 brothers and one has history of cancer of the lip and one cancer in the ear. Patient has 1 sister with no major medical problems. Patient has 2 daughters with no major medical problems and one granddaughter with diabetes mellitus type 1. PHYSICAL EXAMINATION Gen: This is a 75-year-old male. He is resting in bed and appears to be comfortable and in no acute distress HEENT: Head is atraumatic, normocephalic. Pupils equal, round. Sclerae is anicteric. NECK: Supple. No JVD. No lymphadenopathy. No thyromegaly. LUNGS: Clear to auscultation. No wheezes or rhonchi. No intercostal retractions. HEART: Regular rate and rhythm. Systolic ejection murmur. 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 ABDOMEN: Soft. Bowel sounds are present. No masses. No tenderness. EXTREMITIES: No pedal edema. No calf tenderness. NEUROLOGICAL: Patient is awake, alert and oriented to person and place but significant short-term memory deficit. Cranial nerves 2 through 12 are grossly intact. ASSESSMENT AND PLAN 1. Dizziness of unclear etiology. Outpatient workup has been negative. Patient is scheduled to see ENT with Dr. Garsia. Orthostatic changes has been ruled out. 2. Diabetes mellitus type 2. 3. Hyperlipidemia. 4. Permanent pacemaker. 5. Coronary artery disease. 6. Dementia under the care of Dr. Canada. Patient placed on the observation unit. DISCHARGE PLAN Home. Impression and plan of care have been directed as dictated by the signing physician. Jaimie Deleon nurse practitioner acting as scribe for signing physician. Past Medical History Past Medical History: Diabetes Mellitus, Hyperlipidemia, Memory Impairment, Prostate Disorder, Thyroid Disorder Additional Past Medical History / Comment(s): seizures 5 yrs ago from heart problems, pacemaker works only 1 % per S.O, having dizzy spells, History of Any Multi-Drug Resistant Organisms: None Reported Past Surgical History: Pacemaker Additional Past Surgical History / Comment(s): pacemaker , carpal tunnel Past Anesthesia/Blood Transfusion Reactions: No Reported Reaction Type of Cardiac Device: Permanent Pacemaker Device Placement Date:: 06/2017 Past Psychological History: No Psychological Hx Reported Additional Psychological History / Comment(s): dementia Smoking Status: Never smoker Past Alcohol Use History: None Reported Past Drug Use History: Unable to Obtain - Past Family History Brother(s) Family Medical History: Cancer Medications and Allergies Home Medications Medication Instructions Recorded Confirmed Type Aspirin EC [Ecotrin Low Dose] 81 mg PO DAILY 01/11/19 01/03/21 History Atorvastatin [Lipitor] 40 mg PO HS 01/11/19 01/03/21 History glipiZIDE [Glucotrol] 2.5 mg PO DAILY 01/11/19 01/03/21 History Donepezil [Aricept] 10 mg PO DAILY 05/03/20 01/03/21 History Levothyroxine Sodium [Synthroid] 100 mcg PO DAILY 10/19/20 01/03/21 History Ascorbic Acid [Vitamin C] 1,000 mg PO DAILY 01/03/21 01/03/21 History Famotidine 40 mg PO DAILY 01/03/21 01/03/21 History Fenofibrate Nanocrystallized 145 mg PO DAILY 01/03/21 01/03/21 History [Fenofibrate] Meclizine [Antivert] 25 mg PO DAILY 01/03/21 01/03/21 History Multivit-Min/FA/Lycopen/Lutein 1 tab PO DAILY 01/03/21 01/03/21 History [Centrum Silver Tablet] Vitamin E 400 unit PO DAILY 01/03/21 01/03/21 History Allergies Allergy/AdvReac Type Severity Reaction Status Date / Time Penicillins Allergy Rash/Hives Verified 12/08/20 11:18 sulfamethoxazole Allergy Rash/Hives Verified 12/08/20 11:18 [From Bactrim] trimethoprim [From Bactrim] Allergy Rash/Hives Verified 12/08/20 11:18 rye bread AdvReac Unknown Uncoded 12/08/20 11:18 Physical Exam Vitals: Vital Signs Temp Pulse Pulse Pulse Resp BP BP 01/04/21 07:00 97.7 F 89 16 01/04/21 01:56 97.7 F 72 16 01/03/21 20:14 97.8 F 92 18 01/03/21 19:43 78 18 01/03/21 16:53 97.5 F L 78 18 111/70 01/03/21 16:03 69 20 117/69 01/03/21 14:54 70 20 112/65 01/03/21 13:08 76 106/57 01/03/21 12:07 77 20 106/62 01/03/21 11:50 98.1 F 82 18 104/64 BP BP Pulse Ox 01/04/21 07:00 135/71 97 01/04/21 01:56 123/68 97 01/03/21 20:14 128/65 98 01/03/21 19:43 01/03/21 16:53 97 01/03/21 16:03 99 01/03/21 14:54 97 01/03/21 13:08 126/62 100/46 01/03/21 12:07 98 01/03/21 11:50 97 Intake and Output 01/03/21 01/04/21 01/04/21 22:59 06:59 14:59 Intake Total 200 Balance 200 Intake: Oral 200 Other: Voiding Method Urinal # Voids 2 7 Weight 83.007 kg Results CBC & Chem 7: 01/03/21 12:24 01/03/21 12:24 Labs: Abnormal Lab Results - Last 24 Hours (Table) 01/03/21 01/03/21 01/03/21 Range/Units 12:24 16:35 20:25 Glucose 216 H (74-99) mg/dL POC Glucose (mg/dL) 121 H 241 H (75-99) mg/dL 01/04/21 Range/Units 07:00 Glucose (74-99) mg/dL POC Glucose (mg/dL) 132 H (75-99) mg/dL
--- NOTE | 2021-01-04 13:29 | ECHOF ---
Referral Reason:dizziness MEASUREMENTS -------- HEIGHT: 170.2 cm WEIGHT: 83.0 kg BP: 123/68 RVIDd: 3.0 cm (< 3.3) IVSd: 1.3 cm (0.6 - 1.1) LVIDd: 4.2 cm (3.9 - 5.3) LVPWd: 1.3 cm (0.6 - 1.1) IVSs: 1.6 cm LVIDs: 3.0 cm LVPWs: 1.9 cm LAESV Index (A-L): 25.88 ml/m Ao Diam: 3.2 cm (2.0 - 3.7) AV Cusp: 1.8 cm (1.5 - 2.6) LA Diam: 3.1 cm (2.7 - 3.8) MV EXCURSION: 16.216 mm (> 18.000) MV EF SLOPE: 78 mm/s (70 - 150) EPSS: 1.0 cm MV E [place]: 0.78 m/s MV DecT: 307 ms MV A [place]: 0.86 m/s MV E/A Ratio: 0.90 RAP: 5.00 mmHg RVSP: 13.21 mmHg FINDINGS -------- Sinus rhythm. This was a technically difficult study with suboptimal views. The left ventricular size is normal. There is mild concentric left ventricular hypertrophy. Overa ll left ventricular systolic function is normal with, an EF between 55 - 60 %. The right ventricle is normal in size. Normal LA size by volume 22+/-6 ml/m2. The right atrium was not well visualized. 5.0mg of Lumason was utilized for enhancement of images Interatrial and interventricular septum intact. The aortic valve was not well visualized. There is mild aortic regurgitation. There is no evidenc e of aortic stenosis. The mitral valve was not well visualized. There is trace mitral regurgitation. Mild tricuspid regurgitation present. There is no evidence of pulmonary hypertension. The right v entricular systolic pressure, as measured by Doppler, is 13.21mmHg. The pulmonic valve was not well visualized. Trace/mild (physiologic) pulmonic regurgitation. The aortic root size is normal. IVC Not well visulized. There is no pericardial effusion. CONCLUSIONS -------- 1. This was a technically difficult study with suboptimal views. 2. There is mild concentric left ventricular hypertrophy. 3. Overall left ventricular systolic function is normal with, an EF between 55 - 60 %. 4. Normal LA size by volume 22+/-6 ml/m2. 5. There is mild aortic regurgitation. 6. There is trace mitral regurgitation. 7. Mild tricuspid regurgitation present. 8. Trace/mild (physiologic) pulmonic regurgitation. 9. There is no pericardial effusion. HUMAN CAPITAL MANAGER: Cary Evans RDCS
[2021-01-04 14:21] VITALS: PULSE 76
[2021-01-04 15:59] VITALS: BP 109/55
== END 2021-01-04 17:20 | disposition home or self-care (01) ==
LOC: EC 11:43 → 6NMEDSUR 15:02
PROVIDERS: ADMIT Internal Medicine; ATTEND Internal Medicine
DX: R42 Dizziness and giddiness (principal); E11.9 Type 2 diabetes mellitus without complications; E78.5 Hyperlipidemia, unspecified; I25.10 Atherosclerotic heart disease of native coronary artery without angina pectoris; F03.90 Unspecified dementia, unspecified severity, without behavioral disturbance, psychotic disturbance, mood disturbance, and anxiety; E07.9 Disorder of thyroid, unspecified; N42.9 Disorder of prostate, unspecified; Z86.59 Personal history of other mental and behavioral disorders; Z79.82 Long term (current) use of aspirin; Z79.84 Long term (current) use of oral hypoglycemic drugs; Z79.890 Hormone replacement therapy; Z79.899 Other long term (current) drug therapy; Z95.0 Presence of cardiac pacemaker; Z77.22 Contact with and (suspected) exposure to environmental tobacco smoke (acute) (chronic); Z80.8 Family history of malignant neoplasm of other organs or systems; Z82.0 Family history of epilepsy and other diseases of the nervous system; Z82.49 Family history of ischemic heart disease and other diseases of the circulatory system; Z88.0 Allergy status to penicillin; Z88.2 Allergy status to sulfonamides; Z91.018 Allergy to other foods
CPT/HCPCS: 99285; 36415; 93005; 80061; 80053; 83735; 84484; 85025; 85610; 85730; 71046; 70450; G0378 ×2; C8929; Q9950; 93306

== ENCOUNTER 2021-05-09 08:03 | Observation (INO) | payer MEDICARE ==
--- NOTE | 2021-05-09 08:16 | ED ---
Altered Mental Status HPI - General Stated Complaint: altered mental status Time Seen by Provider: 05/09/21 08:05 Source: patient, EMS, RN notes reviewed Mode of arrival: EMS - History of Present Illness Initial Comments: 76-year-old male with a history dementia and chronic atrial fibrillation with pacemaker history of thyroid disease history of diabetes history of hypertension and high cholesterol who was brought in by EMS this morning after he had a period of unresponsiveness lasting 1-2 minutes. He apparently was squatting down to put a lesion on his dog let him out and he stated position and was unresponsive per family members he apparently had an episode of his eyes rolling back upward. No trauma reported no falls no shaking after the episode was over he was apparently awake and alert. He was brought in by EMS he did demonstrate adequate vitals and glucose level. He apparently took his medications this morning around 3 AM. MD Complaint: decreased responsiveness - Related Data Home Medications Medication Instructions Recorded Confirmed Aspirin EC [Ecotrin Low Dose] 81 mg PO DAILY 01/11/19 01/03/21 Atorvastatin [Lipitor] 40 mg PO HS 01/11/19 01/03/21 glipiZIDE [Glucotrol] 2.5 mg PO DAILY 01/11/19 01/03/21 Donepezil [Aricept] 10 mg PO DAILY 05/03/20 01/03/21 Levothyroxine Sodium [Synthroid] 100 mcg PO DAILY 10/19/20 01/03/21 Ascorbic Acid [Vitamin C] 1,000 mg PO DAILY 01/03/21 01/03/21 Famotidine 40 mg PO DAILY 01/03/21 01/03/21 Fenofibrate Nanocrystallized 145 mg PO DAILY 01/03/21 01/03/21 [Fenofibrate] Meclizine [Antivert] 25 mg PO DAILY 01/03/21 01/03/21 Multivit-Min/FA/Lycopen/Lutein 1 tab PO DAILY 01/03/21 01/03/21 [Centrum Silver Tablet] Vitamin E 400 unit PO DAILY 01/03/21 01/03/21 Allergies Allergy/AdvReac Type Severity Reaction Status Date / Time Penicillins Allergy Rash/Hives Verified 05/09/21 08:16 sulfamethoxazole Allergy Rash/Hives Verified 05/09/21 08:16 [From Bactrim] trimethoprim [From Bactrim] Allergy Rash/Hives Verified 05/09/21 08:16 rye bread AdvReac Unknown Uncoded 05/09/21 08:16 Review of Systems ROS Statement: Those systems with pertinent positive or pertinent negative responses have been documented in the HPI. ROS Other: All systems not noted in ROS Statement are negative. Past Medical History Past Medical History: Diabetes Mellitus, Hyperlipidemia, Memory Impairment, Prostate Disorder, Thyroid Disorder Additional Past Medical History / Comment(s): seizures 5 yrs ago from heart problems, pacemaker works only 1 % per S.O, having dizzy spells, History of Any Multi-Drug Resistant Organisms: None Reported Past Surgical History: Pacemaker Additional Past Surgical History / Comment(s): pacemaker , carpal tunnel Past Anesthesia/Blood Transfusion Reactions: No Reported Reaction Type of Cardiac Device: Permanent Pacemaker Device Placement Date:: 06/2017 Past Psychological History: No Psychological Hx Reported Additional Psychological History / Comment(s): dementia Smoking Status: Never smoker Past Alcohol Use History: None Reported Past Drug Use History: Unable to Obtain - Past Family History Brother(s) Family Medical History: Cancer General Exam - General Exam Comments Initial Comments: This is a well-developed well-nourished awake alert male he demonstrated no distress at this time General appearance: alert, in no apparent distress Head exam: Present: atraumatic, normocephalic, normal inspection Eye exam: Present: normal appearance, PERRL, EOMI. Absent: scleral icterus, conjunctival injection, periorbital swelling ENT exam: Present: normal exam, mucous membranes moist Neck exam: Present: normal inspection, full ROM, other (No stridor JVD or bruits). Absent: tenderness, meningismus, lymphadenopathy Respiratory exam: Present: normal lung sounds bilaterally. Absent: respiratory distress, wheezes, rales, rhonchi, stridor Cardiovascular Exam: Present: regular rate, normal rhythm, normal heart sounds. Absent: systolic murmur, diastolic murmur, rubs, gallop, clicks GI/Abdominal exam: Present: soft, normal bowel sounds. Absent: distended, tenderness, guarding, rebound, rigid Extremities exam: Present: normal inspection, full ROM, normal capillary refill. Absent: tenderness, pedal edema, joint swelling, calf tenderness Back exam: Present: normal inspection Neurological exam: Present: alert, oriented X3, CN II-XII intact Psychiatric exam: Present: normal affect, normal mood Skin exam: Present: warm, dry, intact, normal color. Absent: rash Course Vital Signs 05/09/21 05/09/21 08:04 10:53 Temperature 97.5 F L Pulse Rate 80 81 Respiratory 18 19 Rate Blood Pressure 119/75 110/73 O2 Sat by Pulse 98 98 Oximetry Medical Decision Making - Medical Decision Making Reevaluation patient finds he is awake alert no further symptoms thus far I did discuss findings with him as well as with Dr. Breen patient will be admitted for IV hydration and evaluation of near-syncope - Lab Data Result diagrams: 05/09/21 08:33 05/09/21 09:05 Lab Results 05/09/21 05/09/21 05/09/21 Range/Units 08:33 08:33 08:33 WBC 7.3 (3.8-10.6) k/uL RBC 4.71 (4.30-5.90) m/uL Hgb 14.9 (13.0-17.5) gm/dL Hct 44.3 (39.0-53.0) % MCV 94.2 (80.0-100.0) fL MCH 31.6 (25.0-35.0) pg MCHC 33.5 (31.0-37.0) g/dL RDW 12.7 (11.5-15.5) % Plt Count 215 (150-450) k/uL MPV 8.7 Neutrophils % 57 % Lymphocytes % 32 % Monocytes % 5 % Eosinophils % 3 % Basophils % 1 % Neutrophils # 4.2 (1.3-7.7) k/uL Lymphocytes # 2.3 (1.0-4.8) k/uL Monocytes # 0.4 (0-1.0) k/uL Eosinophils # 0.2 (0-0.7) k/uL Basophils # 0.0 (0-0.2) k/uL PT 10.7 (9.0-12.0) sec INR 1.0 (<1.2) APTT 20.7 L (22.0-30.0) sec Sodium (137-145) mmol/L Potassium (3.5-5.1) mmol/L Chloride (98-107) mmol/L Carbon Dioxide (22-30) mmol/L Anion Gap mmol/L BUN (9-20) mg/dL Creatinine (0.66-1.25) mg/dL Est GFR (CKD-EPI)AfAm (>60 ml/min/1.73 sqM) Est GFR (CKD-EPI)NonAf (>60 ml/min/1.73 sqM) Glucose (74-99) mg/dL Calcium (8.4-10.2) mg/dL Magnesium (1.6-2.3) mg/dL Total Bilirubin (0.2-1.3) mg/dL AST (17-59) U/L ALT (4-49) U/L Alkaline Phosphatase (38-126) U/L Troponin I (0.000-0.034) ng/mL Total Protein (6.3-8.2) g/dL Albumin (3.5-5.0) g/dL TSH (0.465-4.680) mIU/L Free T4 (0.78-2.19) ng/dL Urine Color Yellow Urine Appearance Clear (Clear) Urine pH 6.0 (5.0-8.0) Ur Specific [place] 1.022 (1.001-1.035) Urine Protein Trace H (Negative) Urine Glucose (UA) 3+ H (Negative) Urine Ketones Negative (Negative) Urine Blood Negative (Negative) Urine Nitrite Negative (Negative) Urine Bilirubin Negative (Negative) Urine Urobilinogen <2.0 (<2.0) mg/dL Ur Leukocyte Esterase Negative (Negative) Urine Opiates Screen Not Detected (NotDetected) Ur Oxycodone Screen Not Detected (NotDetected) Urine Methadone Screen Not Detected (NotDetected) Ur Propoxyphene Screen Not Detected (NotDetected) Ur Barbiturates Screen Not Detected (NotDetected) U Tricyclic Antidepress Not Detected (NotDetected) Ur Phencyclidine Scrn Not Detected (NotDetected) Ur Amphetamines Screen Not Detected (NotDetected) U Methamphetamines Scrn Not Detected (NotDetected) U Benzodiazepines Scrn Not Detected (NotDetected) Urine Cocaine Screen Not Detected (NotDetected) U Marijuana (THC) Screen Not Detected (NotDetected) 05/09/21 05/09/21 05/09/21 Range/Units 09:05 09:05 09:05 WBC (3.8-10.6) k/uL RBC (4.30-5.90) m/uL Hgb (13.0-17.5) gm/dL Hct (39.0-53.0) % MCV (80.0-100.0) fL MCH (25.0-35.0) pg MCHC (31.0-37.0) g/dL RDW (11.5-15.5) % Plt Count (150-450) k/uL MPV Neutrophils % % Lymphocytes % % Monocytes % % Eosinophils % % Basophils % % Neutrophils # (1.3-7.7) k/uL Lymphocytes # (1.0-4.8) k/uL Monocytes # (0-1.0) k/uL Eosinophils # (0-0.7) k/uL Basophils # (0-0.2) k/uL PT (9.0-12.0) sec INR (<1.2) APTT (22.0-30.0) sec Sodium 138 (137-145) mmol/L Potassium 4.5 (3.5-5.1) mmol/L Chloride 105 (98-107) mmol/L Carbon Dioxide 22 (22-30) mmol/L Anion Gap 11 mmol/L BUN 19 (9-20) mg/dL Creatinine 1.28 H (0.66-1.25) mg/dL Est GFR (CKD-EPI)AfAm 62 (>60 ml/min/1.73 sqM) Est GFR (CKD-EPI)NonAf 53 (>60 ml/min/1.73 sqM) Glucose 216 H (74-99) mg/dL Calcium 9.7 (8.4-10.2) mg/dL Magnesium 2.0 (1.6-2.3) mg/dL Total Bilirubin 0.7 (0.2-1.3) mg/dL AST 30 (17-59) U/L ALT 32 (4-49) U/L Alkaline Phosphatase 61 (38-126) U/L Troponin I <0.012 (0.000-0.034) ng/mL Total Protein 7.2 (6.3-8.2) g/dL Albumin 4.0 (3.5-5.0) g/dL TSH 16.300 H (0.465-4.680) mIU/L Free T4 1.23 (0.78-2.19) ng/dL Urine Color Urine Appearance (Clear) Urine pH (5.0-8.0) Ur Specific [place] (1.001-1.035) Urine Protein (Negative) Urine Glucose (UA) (Negative) Urine Ketones (Negative) Urine Blood (Negative) Urine Nitrite (Negative) Urine Bilirubin (Negative) Urine Urobilinogen (<2.0) mg/dL Ur Leukocyte Esterase (Negative) Urine Opiates Screen (NotDetected) Ur Oxycodone Screen (NotDetected) Urine Methadone Screen (NotDetected) Ur Propoxyphene Screen (NotDetected) Ur Barbiturates Screen (NotDetected) U Tricyclic Antidepress (NotDetected) Ur Phencyclidine Scrn (NotDetected) Ur Amphetamines Screen (NotDetected) U Methamphetamines Scrn (NotDetected) U Benzodiazepines Scrn (NotDetected) Urine Cocaine Screen (NotDetected) U Marijuana (THC) Screen (NotDetected) - Radiology Data Radiology results: report reviewed (Imaging reviewed no acute findings), image reviewed Disposition Clinical Impression: Near syncope, Dehydration Disposition: ADMITTED IP TO THIS [facility] Condition: Stable Referrals: Isauro Louie MD [Primary Care Provider] - 1-2 days
[2021-05-09 08:52] LABS: Basophils % (A) 1 %; Eosinophils # (A) 0.2 k/uL (0-0.7); Eosinophils % (A) 3 %; HCT 44.3 % (39.0-53.0); HGB 14.9 gm/dL (13.0-17.5); Lymphocytes # (A) 2.3 k/uL (1.0-4.8); Lymphocytes % (A) 32 %; MCH 31.6 pg (25.0-35.0); MCHC 33.5 g/dL (31.0-37.0); MCV 94.2 fL (80.0-100.0); Mean Platelet Volume 8.7; Monocytes # (A) 0.4 k/uL (0-1.0); Monocytes % (A) 5 %; Neutrophils # (A) 4.2 k/uL (1.3-7.7); Neutrophils % (A) 57 %; Platelet Count 215 k/uL (150-450); RBC 4.71 m/uL (4.30-5.90); RDW 12.7 % (11.5-15.5); WBC 7.3 k/uL (3.8-10.6)
--- NOTE | 2021-05-09 09:08 | CT ---
EXAMINATION TYPE: CT brain wo con DATE OF EXAM: 05/09/2021 COMPARISON: CT brain 01/04/2021 HISTORY: Altered mental status CT DLP: 1109.4 mGycm Automated exposure control for dose reduction was used. Helical imaging through the brain FINDINGS: The periventricular white matter low-attenuation is again seen. Cortical atrophy again noted. There i s no hemorrhage or hydrocephalus. Cerebral vascular calcifications are present. Orbits are symmetric. Paranasal sinuses are clear, and mastoids are well aerated. Calvarium is intact. IMPRESSION: STABLE EXAM, AGE-RELATED CHANGES OF ATROPHY AND CHRONIC SMALL VESSEL ISCHEMIA. NO ACUTE ABNORMALITY E VIDENT
--- NOTE | 2021-05-09 09:12 | XR ---
EXAMINATION TYPE: XR chest 2V DATE OF EXAM: 05/09/2021 COMPARISON: 01/03/2021 INDICATION: Altered mental status, weakness TECHNIQUE: Single frontal view of the chest is obtained. FINDINGS: The heart size is normal. The pulmonary vasculature is normal. The lungs are clear. Pacemaker overlies left chest IMPRESSION: 1. No acute pulmonary process.
[2021-05-09 09:33] LABS: ALT 32 U/L (4-49); AST 30 U/L (17-59); African American GFR (CKD) 62 (>60 ml/min/1.73 sqM); Alkaline Phosphatase 61 U/L (38-126); Anion Gap 11 mmol/L; Blood Urea Nitrogen 19 mg/dL (9-20); Calcium 9.7 mg/dL (8.4-10.2); Carbon Dioxide 22 mmol/L (22-30); Chloride 105 mmol/L (98-107); Glucose 216 mg/dL (74-99); Non-African American GFR(CKD) 53 (>60 ml/min/1.73 sqM); Potassium 4.5 mmol/L (3.5-5.1); Sodium 138 mmol/L (137-145); Total Bilirubin 0.7 mg/dL (0.2-1.3); Total Protein 7.2 g/dL (6.3-8.2)
[2021-05-09 09:42] LABS: Prothrombin Time 10.7 sec (9.0-12.0)
[2021-05-09 09:57] LABS: Appearance,Urine Clear (Clear); Bilirubin,Urine Negative (Negative); Blood,Urine Negative (Negative); Color,Urine Yellow; Glucose,Urine (UA) 3+ (Negative); Ketones,Urine Negative (Negative); Leukocyte Esterase,Urine Negative (Negative); Nitrite,Urine Negative (Negative); Protein,Urine Trace (Negative); Specific Gravity,Urine 1.022 (1.001-1.035); Urobilinogen,Urine <2.0 mg/dL (<2.0)
[2021-05-09 09:58] LABS: Partial Thromboplastin Time 20.7 sec (22.0-30.0)
[2021-05-09 10:23] LABS: Amphetamine Screen,Urine Not Detected (NotDetected); Barbiturate Screen,Urine Not Detected (NotDetected); Benzodiazepines Screen,Urine Not Detected (NotDetected); Cocaine Screen,Urine Not Detected (NotDetected); Methadone Screen, Urine Not Detected (NotDetected); Opiate Screen,Urine Not Detected (NotDetected); Oxycodone Screen, Urine Not Detected (NotDetected); Phencyclidine Screen,Urine Not Detected (NotDetected); Tricyclic Antidepressant,Urine Not Detected (NotDetected); Urn Cannabinoid Scrn Not Detected (NotDetected)
--- NOTE | 2021-05-09 13:53 | P.HPIM ---
History of Present Illness H&P Date: 05/09/21 HISTORY OF PRESENT ILLNESS This is a 75-year-old male patient of Drs. Louie, Dread and Jake with PMH of diabetes mellitus type 2, hyperlipidemia, permanent pacemaker implantation, coronary artery disease with previous heart catheterization in April 2020, dementia. He has had full workup with Dr. Canada including carotid ultrasound which was negative for hemodynamically significant stenosis. Patient lives with his [id number] i, since the patient's in 2015 he has had problems with dizziness. Patient's axmjjm-[id number] was admitted a day prior due to passing out spell at her ophthalmology appointment. Apparently patient was trying to bring her car from the ophthalmology office. He was found kneeling outside and was found to have a blank look on his face, not responding to anybody's questions. He was brought in by EMS to be assessed. On evaluation in the ER, patient's vitals were stable on this 81 he was slightly hypothermic at 97.5 blood pressure 110/73. Labs were unremarkable WBC 7.3 hemoglobin 14.9 creatinine 1.28 glucose 216 TSH 16 urinalysis was normal with 3+ glucose UDS was negative. Patient assessed at bedside recall the incidents does not remember passing out. Unclear if patient passed out from patient's history. Patient denies any history of wandering away in the past denies any accidents in the house denies any difficulty with driving. PTOT assessment made to assess for rehab potential for patient. REVIEW OF SYSTEMS Constitutional: No fever, no chills, no night sweats. No weight change. No weakness, fatigue or lethargy. No daytime sleepiness. EENT: No headache. No blurred vision or double vision, no loss of vision. No loss of Hearing, no ringing in the ears, no dizziness. No nasal drainage or congestion. No epistaxis. No sore throat. Lungs: No shortness of breath, cough, no sputum production. No wheezing. Cardiovascular: No chest pain, no lower extremity edema. No palpitations. No paroxysmal nocturnal dyspnea. No orthopnea. No lightheadedness reports dizziness. No syncopal episodes. Abdominal: No abdominal pain. No nausea, vomiting. No diarrhea. No constipation. No bloody or tarry stools.. No loss of appetite. Genitourinary: No dysuria, increased frequency, urgency. No urinary retention. Musculoskeletal: No myalgias. No muscle weakness, no gait dysfunction, no frequent falls. No back pain. No neck pain. Integumentary: No wounds, no lesions. No rash or pruritus. No unusual bruising. No change in hair or nails. Neurologic: No aphasia. No facial droop. No change in mentation. No head injury. No headache. No paralysis. No paresthesia. Psychiatric: No depression. No anxiety. No mood swings. Endocrine: No abnormal blood sugars. No weight change. No excessive sweating or thirst. No cold intolerance. SOCIAL HISTORY Patient was a lifelong nonsmoker but was exposed to secondhand smoke with his . He does have a history of heavy alcohol abuse but quit a number of years ago. No illicit drug use, no marijuana use. He currently lives with Mikki his pbxjsr-gg-ali. FAMILY HISTORY Mother is alive at age 102 with Alzheimer's dementia. Father of coronary artery disease with history of CABG. Patient has 4 brothers and one has history of cancer of the lip and one cancer in the ear. Patient has 1 sister with no major medical problems. Patient has 2 daughters with no major medical problems and one granddaughter with diabetes mellitus type 1. PHYSICAL EXAMINATION Gen: This is a 75-year-old male. He is resting in bed and appears to be comfortable and in no acute distress HEENT: Head is atraumatic, normocephalic. Pupils equal, round. Sclerae is anicteric. NECK: Supple. No JVD. No lymphadenopathy. No thyromegaly. LUNGS: Clear to auscultation. No wheezes or rhonchi. No intercostal retractions. HEART: Regular rate and rhythm. Systolic ejection murmur. rn cardiac cath is sinus rhythm. ABDOMEN: Soft. Bowel sounds are present. No masses. No tenderness. EXTREMITIES: No pedal edema. No calf tenderness. NEUROLOGICAL: Patient is awake, alert and oriented to person and place but significant short-term memory deficit. Cranial nerves 2 through 12 are grossly intact. ASSESSMENT AND PLAN Acute metabolic encephalopathy with Mild Hypothermia with unresponsiveness with underlying dementia. Dementia under the care of Dr. Canada. - With underlying dementia - Labs are normal rule out rhabdomyolysis and lactic acidosis. - TSH elevated. PTOT evaluation for rehab potential. - Continue to observe over next 24 hour external rewarming if temperature drops below 95 Orthostatic changes has been ruled out. - Continue Aricept 10 mg by mouth daily Hypothyroidism Increase Synthyroid 150 g by mouth daily TSH in 6 weeks Diabetes mellitus type 2. Glipizide 5 mg by mouth daily Hyperlipidemia. Continue atorvastatin 80 mg daily at bedtime continue fenofibrate 145 by mouth daily Permanent pacemaker. Coronary artery disease. Continue aspirin 81 mg by mouth daily Patient placed on the observation unit. DISCHARGE PLAN Home. Past Medical History Past Medical History: Diabetes Mellitus, Hyperlipidemia, Memory Impairment, Prostate Disorder, Thyroid Disorder Additional Past Medical History / Comment(s): seizures 5 yrs ago from heart problems, pacemaker works only 1 % per S.O, having dizzy spells, History of Any Multi-Drug Resistant Organisms: None Reported Past Surgical History: Pacemaker Additional Past Surgical History / Comment(s): pacemaker , carpal tunnel Past Anesthesia/Blood Transfusion Reactions: No Reported Reaction Type of Cardiac Device: Permanent Pacemaker Device Placement Date:: 06/2017 Past Psychological History: No Psychological Hx Reported Additional Psychological History / Comment(s): dementia Smoking Status: Never smoker Past Alcohol Use History: None Reported Past Drug Use History: Unable to Obtain - Past Family History Brother(s) Family Medical History: Cancer Medications and Allergies Home Medications Medication Instructions Recorded Confirmed Type Donepezil [Aricept] 10 mg PO HS 05/03/20 05/09/21 History Fenofibrate Nanocrystallized 145 mg PO DAILY 01/03/21 05/09/21 History [Fenofibrate] Aspirin 81 mg PO DAILY 05/09/21 05/09/21 History Atorvastatin Calcium [Lipitor] 80 mg PO HS 05/09/21 05/09/21 History Cholecalciferol [Vitamin D3 (25 25 mcg PO DAILY 05/09/21 05/09/21 History Mcg = 1000 Iu)] Levothyroxine Sodium [Synthroid] 125 mcg PO DAILY 05/09/21 05/09/21 History Magnesium Oxide [Samuel] 500 mg PO DAILY 05/09/21 05/09/21 History Multivit-Min/FA/Lycopen/Lutein 1 tab PO DAILY 05/09/21 05/09/21 History [Centrum Silver Men Tablet] Tamsulosin HCl [Flomax] 0.4 mg PO DAILY 05/09/21 05/09/21 History glipiZIDE XL [Glucotrol Xl] 5 mg PO DAILY 05/09/21 05/09/21 History Allergies Allergy/AdvReac Type Severity Reaction Status Date / Time Penicillins Allergy Rash/Hives Verified 05/09/21 13:33 sulfamethoxazole Allergy Rash/Hives Verified 05/09/21 13:33 [From Bactrim] trimethoprim [From Bactrim] Allergy Rash/Hives Verified 05/09/21 13:33 rye bread AdvReac Unknown Uncoded 05/09/21 13:33 Physical Exam Vitals: Vital Signs Temp Pulse Resp BP Pulse Ox 05/09/21 10:53 97.5 F L 81 19 110/73 98 05/09/21 08:04 80 18 119/75 98 Intake and Output 05/08/21 05/09/21 05/09/21 22:59 06:59 14:59 Other: Weight 81.647 kg Results CBC & Chem 7: 05/09/21 08:33 05/09/21 09:05 Labs: Abnormal Lab Results - Last 24 Hours (Table) 05/09/21 05/09/21 05/09/21 Range/Units 08:33 08:33 09:05 APTT 20.7 L (22.0-30.0) sec Creatinine 1.28 H (0.66-1.25) mg/dL Glucose 216 H (74-99) mg/dL TSH 16.300 H (0.465-4.680) mIU/L Urine Protein Trace H (Negative) Urine Glucose (UA) 3+ H (Negative)
[2021-05-09] MEDS: SODIUM CHLORIDE 0.9% 1,000 ML IV SCH ×2 (16:08→20:01)
[2021-05-09 17:28] LABS: Glucose,Whole Blood 139 mg/dL (75-99)
[2021-05-09 20:25] LABS: Glucose,Whole Blood 282 mg/dL (75-99)
[2021-05-09] MEDS: INSULIN ASPART (NovoLOG) 100 UNIT/ML VIAL SQ SCH (20:55)
[2021-05-09] MEDS ORDERED: ATORVASTATIN 40 MG TAB PO SCH (21:00)
[2021-05-09] MEDS ORDERED: ATORVASTATIN 80 MG TAB PO SCH (21:00)
[2021-05-10] MEDS ORDERED: LEVOTHYROXINE 100 MCG TAB PO SCH (06:30)
[2021-05-10] MEDS ORDERED: LEVOTHYROXINE 75 MCG TAB PO SCH (06:30)
[2021-05-10 07:28] LABS: Glucose,Whole Blood 155 mg/dL (75-99)
[2021-05-10] MEDS: INSULIN ASPART (NovoLOG) 100 UNIT/ML VIAL SQ SCH (07:40)
[2021-05-10] MEDS: SODIUM CHLORIDE 0.9% 1,000 ML IV SCH (07:41)
[2021-05-10 08:23] VITALS: BP 132/75; PULSE 79; RESP 15; TEMP 97.9
[2021-05-10] MEDS ORDERED: VITAMIN E (DL,TOCOPHERYL ACET) 400 UNIT (180 MG) CAP PO SCH (09:00)
[2021-05-10] MEDS ORDERED: FENOFIBRATE 160 MG TAB PO SCH (09:00)
[2021-05-10] MEDS ORDERED: DONEPEZIL 10 MG TAB PO SCH (09:00)
[2021-05-10] MEDS ORDERED: TAMSULOSIN 0.4 MG CAP.ER.24H PO SCH (09:00)
[2021-05-10] MEDS ORDERED: MECLIZINE 25 MG TAB PO SCH (09:00)
[2021-05-10] MEDS ORDERED: ASPIRIN 81 MG PO SCH ×2 (09:00)
[2021-05-10] MEDS ORDERED: MULTIVITAMINS, THERA 1 EACH TAB PO SCH (09:00)
[2021-05-10] MEDS ORDERED: ASCORBIC ACID 500 MG TAB PO SCH (09:00)
[2021-05-10] MEDS ORDERED: MAGNESIUM OXIDE 400 MG TAB PO SCH (09:00)
[2021-05-10] MEDS ORDERED: FAMOTIDINE 20 MG TAB PO SCH (09:00)
[2021-05-10 09:41] LABS: Chol/HDL Ratio 6.28 Ratio; LDL Cholesterol,Calculated 145.2 mg/dL (0.0-131.0)
--- NOTE | 2021-05-10 16:47 | P.DS ---
Providers Date of admission: 05/09/21 12:54 Expected date of discharge: 05/10/21 Attending physician: Cindi Breen MD Primary care physician: Isauro Louie [facility] Course: HISTORY OF PRESENT ILLNESS This is a 75-year-old male patient of Drs. Louie, Dread and Jake with PMH of diabetes mellitus type 2, hyperlipidemia, permanent pacemaker implantation, coronary artery disease with previous heart catheterization in April 2020, dementia. He has had full workup with Dr. Canada including carotid ultrasound which was negative for hemodynamically significant stenosis. Patient lives with his xjgfem-[id number]-ydx i, since the patient's in 2015 he has had problems with dizziness. Patient's bozwgi-jn-kew was admitted a day prior due to passing out spell at her ophthalmology appointment. Apparently patient was trying to bring her car from the ophthalmology office. He was found kneeling outside and was found to have a blank look on his face, not responding to anybody's questions. He was brought in by EMS to be assessed. On evaluation in the ER, patient's vitals were stable on this 81 he was slightly hypothermic at 97.5 blood pressure 110/73. Labs were unremarkable WBC 7.3 hemoglobin 14.9 creatinine 1.28 glucose 216 TSH 16 urinalysis was normal with 3+ glucose UDS was negative. Patient assessed at bedside recall the incidents does not remember passing out. Unclear if patient passed out from patient's history. Patient denies any history of wandering away in the past denies any accidents in the house denies any difficulty with driving. PTOT assessment made to assess for rehab potential for patient. 05/10: Patient is denying any new complaints. His significant other has been admitted down the heard. She is making arrangements for patient to be transported home. Patient has been afebrile, heart rate 79, blood pressure 132/75 and pulse ox 99% on room air. Blood sugars are running between 155 and 282. Patient will be discharged home today in stable condition. DISCHARGE DIAGNOSES Acute metabolic encephalopathy with Mild Hypothermia with unresponsiveness with underlying dementia. Dementia under the care of Dr. Canada. Hypothyroidism Diabetes mellitus type 2. Hyperlipidemia. Permanent pacemaker. Coronary artery disease. DISCHARGE PLAN Home. Greater than 35 minutes was utilized and coordinating patient's discharge. Impression and plan of care have been directed as dictated by the signing physician. Jaimie Deleon nurse practitioner acting as scribe for signing physician. Patient Condition at Discharge: Stable Plan - Discharge Summary New Discharge Prescriptions: New Levothyroxine Sodium [Synthroid] 150 mcg PO DAILY@0630 #30 tab Continue Donepezil [Aricept] 10 mg PO HS Multivit-Min/FA/Lycopen/Lutein [Centrum Silver Men Tablet] 1 tab PO DAILY Fenofibrate Nanocrystallized [Fenofibrate] 145 mg PO DAILY Cholecalciferol [Vitamin D3 (25 Mcg = 1000 Iu)] 25 mcg PO DAILY Magnesium Oxide [Samuel] 500 mg PO DAILY Aspirin 81 mg PO DAILY glipiZIDE XL [Glucotrol XL] 5 mg PO DAILY Tamsulosin HCl [Flomax] 0.4 mg PO DAILY Atorvastatin Calcium [Lipitor] 80 mg PO HS Discontinued Levothyroxine Sodium [Synthroid] 125 mcg PO DAILY Discharge Medication List Donepezil [Aricept] 10 mg PO HS 05/03/20 [History] Fenofibrate Nanocrystallized [Fenofibrate] 145 mg PO DAILY 01/03/21 [History] Aspirin 81 mg PO DAILY 05/09/21 [History] Atorvastatin Calcium [Lipitor] 80 mg PO HS 05/09/21 [History] Cholecalciferol [Vitamin D3 (25 Mcg = 1000 Iu)] 25 mcg PO DAILY 05/09/21 [History] Magnesium Oxide [Samuel] 500 mg PO DAILY 05/09/21 [History] Multivit-Min/FA/Lycopen/Lutein [Centrum Silver Men Tablet] 1 tab PO DAILY 05/09/21 [History] Tamsulosin HCl [Flomax] 0.4 mg PO DAILY 05/09/21 [History] glipiZIDE XL [Glucotrol XL] 5 mg PO DAILY 05/09/21 [History] Levothyroxine Sodium [Synthroid] 150 mcg PO DAILY@0630 #30 tab 05/10/21 [Rx] Follow up Appointment(s)/Referral(s): Isauro Louie MD [Primary Care Provider] - 1-2 days Patient Instructions/Handouts: Dehydration (DC), Near Syncope (DC) Discharge Disposition: HOME SELF-CARE
== END 2021-05-10 13:00 | disposition home or self-care (01) ==
LOC: EC 08:03 → 6NMEDSUR 12:54
PROVIDERS: ADMIT Internal Medicine; ATTEND Internal Medicine
DX: G93.41 Metabolic encephalopathy (principal); F03.90 Unspecified dementia, unspecified severity, without behavioral disturbance, psychotic disturbance, mood disturbance, and anxiety; E86.0 Dehydration; T68.XXXA Hypothermia, initial encounter; I48.20 Chronic atrial fibrillation, unspecified; E03.9 Hypothyroidism, unspecified; E11.9 Type 2 diabetes mellitus without complications; E78.00 Pure hypercholesterolemia, unspecified; I67.82 Cerebral ischemia; I25.10 Atherosclerotic heart disease of native coronary artery without angina pectoris; I10 Essential (primary) hypertension; E78.5 Hyperlipidemia, unspecified; N42.9 Disorder of prostate, unspecified; R41.3 Other amnesia; Z79.82 Long term (current) use of aspirin; Z79.84 Long term (current) use of oral hypoglycemic drugs; Z79.890 Hormone replacement therapy; Z79.899 Other long term (current) drug therapy; Z88.0 Allergy status to penicillin; Z88.1 Allergy status to other antibiotic agents; Z88.2 Allergy status to sulfonamides; Z91.018 Allergy to other foods; Z95.0 Presence of cardiac pacemaker; Z98.890 Other specified postprocedural states; Z77.22 Contact with and (suspected) exposure to environmental tobacco smoke (acute) (chronic); Z80.9 Family history of malignant neoplasm, unspecified; Z82.0 Family history of epilepsy and other diseases of the nervous system; Z82.49 Family history of ischemic heart disease and other diseases of the circulatory system; Z80.8 Family history of malignant neoplasm of other organs or systems; Z83.3 Family history of diabetes mellitus
CPT/HCPCS: 99285; 36415; 93005; 97162; 97166; 84439; 80061; 80053; 84443; 83735; 84484; 85025; 85610; 85730; 81003; 80306; 83036; 87635; 71046; 70450; G0378 ×2

== ENCOUNTER 2021-06-12 17:09 | Emergency (ER) | payer MEDICARE ==
[2021-06-12 17:21] VITALS: RESP 18
--- NOTE | 2021-06-12 17:48 | ED ---
General Adult HPI - General Chief complaint: Upper Respiratory Infection Stated complaint: Covid + Time Seen by Provider: 06/12/21 17:15 Source: patient, EMS, RN notes reviewed, old records reviewed Mode of arrival: EMS Limitations: no limitations - History of Present Illness Initial comments: This is a 76-year-old male presents emergency Department stating he has shortness of breath since yesterday but states currently sitting here he has no shortness of breath. Patient states she's been exposed to someone with cold it. Patient denies any chest pain or palpitations. Patient denies any fever chills or cough. Patient denies abdominal pain patient denies nausea vomiting or diarrhea. Patient denies loss of taste or smell. Patient denies any headache patient denies lightheadedness or dizziness. Patient states she only reason he is here is a friend of his told him he had a come because she had COVID. - Related Data Home Medications Medication Instructions Recorded Confirmed Donepezil [Aricept] 10 mg PO HS 05/03/20 06/12/21 Fenofibrate Nanocrystallized 145 mg PO DAILY 01/03/21 06/12/21 [Fenofibrate] Aspirin 81 mg PO DAILY 05/09/21 06/12/21 Atorvastatin Calcium [Lipitor] 80 mg PO HS 05/09/21 06/12/21 Cholecalciferol [Vitamin D3 (25 25 mcg PO DAILY 05/09/21 06/12/21 Mcg = 1000 Iu)] Magnesium Oxide [Samuel] 500 mg PO DAILY 05/09/21 06/12/21 Multivit-Min/FA/Lycopen/Lutein 1 tab PO DAILY 05/09/21 06/12/21 [Centrum Silver Men Tablet] glipiZIDE XL [Glucotrol XL] 5 mg PO W/BRKFST 05/09/21 06/12/21 Levothyroxine Sodium 125 mcg PO DAILY 06/12/21 06/12/21 Allergies Allergy/AdvReac Type Severity Reaction Status Date / Time Penicillins Allergy Rash/Hives Verified 05/09/21 16:28 sulfamethoxazole Allergy Rash/Hives Verified 05/09/21 16:28 [From Bactrim] trimethoprim [From Bactrim] Allergy Rash/Hives Verified 05/09/21 16:28 rye bread AdvReac Unknown Uncoded 12/08/21 16:28 Review of Systems ROS Statement: Those systems with pertinent positive or pertinent negative responses have been documented in the HPI. ROS Other: All systems not noted in ROS Statement are negative. Past Medical History Past Medical History: Dementia, Diabetes Mellitus, Hyperlipidemia, Memory Impairment, Prostate Disorder, Thyroid Disorder Additional Past Medical History / Comment(s): seizures 5 yrs ago from heart problems, pacemaker works only 1 % per S.O, having dizzy spells History of Any Multi-Drug Resistant Organisms: None Reported Past Surgical History: Pacemaker Additional Past Surgical History / Comment(s): pacemaker , carpal tunnel Past Anesthesia/Blood Transfusion Reactions: No Reported Reaction Type of Cardiac Device: Permanent Pacemaker Device Placement Date:: 06/2017 Past Psychological History: No Psychological Hx Reported Smoking Status: Never smoker Past Alcohol Use History: None Reported Past Drug Use History: Unable to Obtain - Past Family History Brother(s) Family Medical History: Cancer General Exam - General Exam Comments Initial Comments: GENERAL: Patient is well-developed and well-nourished. Patient is nontoxic and well- hydrated and is in no acute distress. ENT: Neck is soft and supple. No significant lymphadenopathy is noted. Oropharynx is clear. Moist mucous membranes. Neck has full range of motion without eliciting any pain. EYES: The sclera were anicteric and conjunctiva were pink and moist. Extraocular movements were intact and pupils were equal round and reactive to light. Eyelids were unremarkable. PULMONARY: Unlabored respirations. Good breath sounds bilaterally. No audible rales rhonchi or wheezing was noted. CARDIOVASCULAR: There is a regular rate and rhythm without any murmurs gallops or rubs. ABDOMEN: Soft and nontender with normal bowel sounds. SKIN: Skin is clear with no lesions or rashes and otherwise unremarkable. NEUROLOGIC: Patient is alert and oriented x3. Cranial nerves II through XII are grossly intact. Motor and sensory are also intact. Normal speech, volume and content. Symmetrical smile. MUSCULOSKELETAL: Normal extremities with adequate strength and full range of motion. No lower extremity swelling or edema. No calf tenderness. LYMPHATICS: No significant lymphadenopathy is noted PSYCHIATRIC: Normal psychiatric evaluation. Limitations: no limitations Course Vital Signs 06/12/21 17:17 Pulse Rate 67 Respiratory 18 Rate Blood Pressure 131/76 O2 Sat by Pulse 99 Oximetry Medical Decision Making - Medical Decision Making Patient had a positive color test. Patient wanted monoclonal antibodies monoclonal antibodies were given to the patient. - Lab Data Lab Results 06/12/21 Range/Units 17:23 Coronavirus (PCR) Detected A (Not Detectd) Disposition Clinical Impression: COVID-19 Disposition: HOME SELF-CARE Condition: Good Instructions (If sedation given, give patient instructions): Coronavirus Disease 2019 (COVID-19) Is patient prescribed a controlled substance at d/c from ED?: No Referrals: Isauro Louie MD [Primary Care Provider] - 1-2 days Time of Disposition: 20:14
[2021-06-12] MEDS ORDERED: SODIUM CHLORIDE 0.9% 50 ML IVPB ONE (18:45)
[2021-06-12] MEDS ORDERED: BAMLANIVIMAB (EUA) 700 MG, ETESEVIMAB (EUA) 1,400 MG in SODIUM CHLORIDE 0.9% 100 ML IVPB ONE (19:15)
[2021-06-12 20:51] VITALS: BP 128/69; PULSE 69
== END 2021-06-12 20:50 | disposition home or self-care (01) ==
LOC: EC 17:09
DX: U07.1 COVID-19 (principal); Z79.82 Long term (current) use of aspirin; Z88.0 Allergy status to penicillin; Z88.1 Allergy status to other antibiotic agents; Z88.2 Allergy status to sulfonamides; F03.90 Unspecified dementia, unspecified severity, without behavioral disturbance, psychotic disturbance, mood disturbance, and anxiety; E11.9 Type 2 diabetes mellitus without complications; E78.5 Hyperlipidemia, unspecified; E07.9 Disorder of thyroid, unspecified; Z95.0 Presence of cardiac pacemaker
CPT/HCPCS: 99285; M0245; 87635